=== PATIENT | male | born 1940 | race African-American/Black ===

== ENCOUNTER 2020-07-09 13:18 | Observation (INO) | payer MEDICARE, BC ==
[~2020-07-09] VITALS: Ht 167.6 cm; Wt 65.7 kg
[2020-07-09] MEDS ORDERED: ASPIRIN CHEWABLE 81 MG TABLET. PO ONE (13:30)
--- NOTE | 2020-07-09 13:34 | PHYS DOC ---
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 Patient reports chest pain started prior to arrival. Patient is overall a poor historian. Cannot tell me how long it lasted. He reports it was in the middle of his chest. Patient had some mild shortness of breath associated with it. No nausea or vomiting. Patient does report he has coronary disease. Per notations patient is on Plavix. Patient received nitroglycerin and aspirin at home. Patient reports his symptoms have resolved. Patient is currently on antibiotics for urinary tract infection. Patient is taking Keflex. Patient's arrived. She reports that she gave him 3 nitroglycerin at home and aspirin. His doctor is at [facility]. He does have a x ray physician there. He has had stents placed. Review of Systems: Review of Systems: Review of Systems: Constitutional: Denies fever or chills Eyes: Denies redness or eye pain HENT: Denies nasal congestion or sore throat Respiratory: Denies cough or shortness of breath Cardiovascular: Denies palpitations GI: denies abdominal pain and nausea, denies vomiting or diarrhea : Denies dysuria or hematuria Musculoskeletal: Denies back pain or joint pain Integument: Denies rash or skin lesions Neurologic: Denies headache, focal weakness or sensory changes Heart Score: HEART Score for Chest Pain: HEART Score for Chest Pain Response (Comments) Value History Moderately Suspicious 1 ECG Nonspecific Repolarizatio 1 Age > 65 2 Risk Factors >3 Risk Factors or Hx CAD 2 Troponin < Normal Limit 0 Total 6 Risk Factors: Risk Factors: DM, Current or recent (<one month) smoker, HTN, HLP, family history of CAD, obesity. Risk Scores: Score 0 - 3: 2.5% MACE over next 6 weeks - Discharge Home Score 4 - 6: 20.3% MACE over next 6 weeks - Admit for Clinical Observation Score 7 - 10: 72.7% MACE over next 6 weeks - Early Invasive Strategies Current Medications: Current Medications Medications (Trade) Dose Ordered Sig/Rafaela Start Time Stop Time Status Last Admin Dose Admin Aspirin (Aspirin Chewable) 324 mg 1X ONCE 07/09/20 13:30 07/09/20 13:31 UNV Physical Exam: PE: GENERAL APPEARANCE: Awake and alert. Cooperative. No acute distress. Non toxic appearing. HEAD: Normocephalic. Atraumatic. EYES: EOM's grossly intact. Sclera anicteric. Conjunctiva clear ENT:. Airway patent. Mucous membranes moist. No trismus. Tolerating secretions. NECK: Supple. Trachea midline. HEART: Regular rate and rhythm. Radial pulses 2+. Good capillary refill. LUNGS: Respirations unlabored. Clear to auscultation bilaterally. No rales, rhonchi, wheezing or retractions. ABDOMEN: Soft. Non-tender. No guarding or rebound. No CVA tenderness. No palpable or pulsatile mass. EXTREMITIES: No acute deformities. No edema, erythema or calf tenderness. SKIN: Warm and dry. No rash. NEUROLOGICAL: Alert and oriented x3. No gross neurological deficits. Moves all 4 extremities spontaneously. Resting tremor. PSYCHIATRIC: Normal mood. Patient EKG: EKG: [] EKG interpretation shows sinus rhythm with right bundle branch block. Ventricular rate of 68 bpm. [place] interval 160 ms. Castration 128 ms. QTc [address] segment elevations. Radiology/Procedures: Radiology/Procedures: []PROCEDURE: CHEST AP ONLY INDICATION: Reason: chest pain / Spl. Instructions: / History: COMPARISON: None. FINDINGS: Single view of chest obtained. Enlarged cardiomediastinal silhouette. Prominence of the aortic contour. Density projecting over the mediastinum. Hypoexpanded examination without a well- defined focal infiltrate. IMPRESSION: * Hypoexpanded exam without definite focal airspace consolidation. * Enlarged cardiomediastinal silhouette with prominent aortic contour. There is also a density projecting over the mediastinum which has a nonspecific appearance with some possible causes including hiatal hernia or aortic aneurysm. Electronically signed by: Jamey Zavala MD (07/09/2020 3:35 PM) [id number] DICTATED and SIGNED BY: JAMEY ZAVALA MD DATE: 07/09/20 [id number] 0 Course & Med Decision Making: Course & Med Decision Making Medical decision making: This is a 79-year-old male with history of coronary disease presents with chest pain that started prior to arrival. Upon arrival to the emergency department patient chest pain has resolved. He did receive aspirin and nitroglycerin prior to arrival. EKG showed no acute ST segment elevations. Right bundle branch block noted. No previous EKG for comparison. Chest x-ray shows hyperexpanded exam no consolidation. Enlarged cardia moderate mediastinal silhouette. Nonspecific density over the mediastinum. Troponin negative. I spoke with . She is agreeable to admit him. She is aware of all labs and imaging. All questions answered and patient is stable at time of admission. Currently chest pain-free. Marce Disclaimer: Marce Disclaimer: This electronic medical record was generated, in whole or in part, using a voice recognition dictation system. Departure Departure Disposition: ADMITTED INPT THIS HOSP Admitting Physician: DANYA dumont) VENICE SANCHEZ DO Jul 09, 2020 13:34
--- NOTE | 2020-07-09 13:47 | EKG ---
[facility] [address] [place] [address] Test Date: 2020-07-09 Test Time: 13:18:38 Pat Name: NICOLE ROSA Department: Room: Gender: M Media Analyst: : 1940 Requested By: VENICE SANCHEZ Order Number: [id number] Reading MD: Measurements Intervals [place] Rate: 68 P: 31 MI: 168 QRS: -11 QRSD: 128 T: 16 QT: 398 QTc: 423 Interpretive Statements SINUS RHYTHM LEFTWARD AXIS RIGHT BUNDLE BRANCH BLOCK ABNORMAL ECG RI6.02 No previous ECG available for comparison
[2020-07-09 14:11] LABS: BASO % 0 % (0-3); EOS # 0.1 x10^3/uL (0.0-0.7); EOS % 1 % (0-3); HEMATOCRIT 31.2 % (39.0-53.0); HEMOGLOBIN 10.3 g/dL (13.0-17.5); LYMPH % 12 % (24-48); MEAN CORPUSCULAR HEMOGLOBIN 33 pg (25-35); MEAN CORPUSCULAR HGB CONC 33 g/dL (31-37); MEAN CORPUSCULAR VOLUME 99 fL (79-100); MONO # 0.3 x10^3/uL (0.0-1.1); MONO % 4 % (0-9); NEUT # 6.6 x10^3/uL (1.8-7.7); NEUT % 82 % (31-73); PLATELET COUNT 240 x10^3/uL (140-400); RED BLOOD COUNT 3.15 x10^6/uL (4.30-5.70); RED CELL DISTRIBUTION WIDTH 14.8 % (11.5-14.5)
[2020-07-09 14:13] LABS: CALCIUM 10.8 mg/dL (8.5-10.1); CREATININE 1.8 mg/dL (0.7-1.3); GFR 44.4; POTASSIUM 4.3 mmol/L (3.5-5.1)
[2020-07-09 14:19] LABS: ALBUMIN 2.5 g/dL (3.4-5.0); ALBUMIN/GLOBULIN RATIO 0.6 (1.0-1.7); TOTAL BILIRUBIN 0.2 mg/dL (0.2-1.0); TOTAL PROTEIN 6.8 g/dL (6.4-8.2)
--- NOTE | 2020-07-09 15:21 | PDOC1 ---
History and Physical Date of Admission Date of Admission DATE: 07/09/20 TIME: 15:19 Identification/Chief Complaint Chief Complaint 79 yr old male with dementia, seen in er with chest discomfort Patient reports chest pain started prior to arrival. poor historian. reports it was in the middle of his chest. Patient had some mild shortness of breath associated lives in [facility], visiting daughter here in , His had hip surgery yesterday No nausea or vomiting. Patient does report he has coronary disease. is on Plavix. Patient received nitroglycerin and aspirin by EMS. Patient reports his symptoms have resolved. Patient is currently on antibiotics for urinary tract infection. Patient is taking Keflex. 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, chronic kidney disease, diabetes FHX HTN Family History Family History: Hypertension Social History Smoke: No ALCOHOL: none Drugs: None Current Medications Current Medications Current Medications Aspirin (Aspirin Chewable) 324 mg 1X ONCE PO ; Start 07/09/20 at 13:30; Stop 07/09/20 at 14:14; Status DC Allergies Allergies: Coded Allergies: promethazine (Verified Allergy, Severe, serotonin syndrom, 07/09/20) sulfamethoxazole (Verified Allergy, Intermediate, n/v, 07/09/20) trimethoprim (Verified Allergy, Intermediate, n/v, 07/09/20) adhesive tape (Verified Allergy, Mild, rash, 07/09/20) tramadol (Verified Allergy, Mild, tremors, 07/09/20) ROS Review of System Review of Systems: Constitutional: Denies fever or chills. [] Eyes: Denies change in visual acuity. [] HENT: Denies nasal congestion or sore throat. [] Respiratory: Denies cough or shortness of breath. [] Cardiovascular: Denies edema GI: Denies abdominal pain, nausea, vomiting, bloody stools or diarrhea. [] : Denies dysuria. [] Musculoskeletal: Denies back pain or joint pain. [] Integument: Denies rash. [] Neurologic: Denies headache, focal weakness or sensory changes. [] Endocrine: Denies polyuria or polydipsia. [] Lymphatic: Denies swollen glands. [] Psychiatric: Denies depression or anxiety. [] hx limited by dementia POOR HISTORIAN, ASSIST WITH HX , Reported chest pain to her General: YES: Fatigue Physical Exam Physical Exam No acute distress. Non toxic appearing. resistant to opening his eyes HEAD: Normocephalic. Atraumatic. EYES: EOM's grossly intact. Sclera anicteric. Conjunctiva clear ENT:. Airway patent. Mucous membranes moist. No trismus. Tolerating secretions. NECK: Supple. Trachea midline. HEART: Regular rate and rhythm. Radial pulses 2+. Good capillary refill. LUNGS: Respirations unlabored. Clear to auscultation bilaterally. No rales, rhonchi, wheezing or retractions. ABDOMEN: Soft. Non-tender. No guarding or rebound. No CVA tenderness. No palpable or pulsatile mass. EXTREMITIES: No acute deformities. No edema, erythema or calf tenderness. SKIN: Warm and dry. No rash. NEUROLOGICAL: not oriented No gross neurological deficits. Moves all 4 extremities spontaneously. Resting tremor. PSYCHIATRIC: Normal mood. General: Cooperative, No acute distress HEENT: Atraumatic Heart: RRR Breasts: Not examined Abdomen: Normal bowel sounds, Soft Rectal Exam: not examined Extremities: No cyanosis Vitals Vitals Vital Signs Date Time Temp Pulse Resp B/P (MAP) Pulse Ox O2 Delivery O2 Flow Rate FiO2 07/09/20 14:00 70 18 147/69 (95) 98 Room Air 07/09/20 13:18 98.5 98.5 Labs Labs Laboratory Tests Test 07/09/20 13:55 White Blood Count 8.0 x10^3/uL (4.0-11.0) Red Blood Count 3.15 x10^6/uL (4.30-5.70) Hemoglobin 10.3 g/dL (13.0-17.5) Hematocrit 31.2 % (39.0-53.0) Mean Corpuscular Volume 99 fL (79-100) Mean Corpuscular Hemoglobin 33 pg (25-35) Mean Corpuscular Hemoglobin Concent 33 g/dL (31-37) Red Cell Distribution Width 14.8 % (11.5-14.5) Platelet Count 240 x10^3/uL (140-400) Neutrophils (%) (Auto) 82 % (31-73) Lymphocytes (%) (Auto) 12 % (24-48) Monocytes (%) (Auto) 4 % (0-9) Eosinophils (%) (Auto) 1 % (0-3) Basophils (%) (Auto) 0 % (0-3) Neutrophils # (Auto) 6.6 x10^3/uL (1.8-7.7) Lymphocytes # (Auto) 1.0 x10^3/uL (1.0-4.8) Monocytes # (Auto) 0.3 x10^3/uL (0.0-1.1) Eosinophils # (Auto) 0.1 x10^3/uL (0.0-0.7) Basophils # (Auto) 0.0 x10^3/uL (0.0-0.2) Sodium Level 143 mmol/L (136-145) Potassium Level 4.3 mmol/L (3.5-5.1) Chloride Level 108 mmol/L (98-107) Carbon Dioxide Level 25 mmol/L (21-32) Anion Gap 10 (6-14) Blood Urea Nitrogen 34 mg/dL (8-26) Creatinine 1.8 mg/dL (0.7-1.3) Estimated GFR (Cockcroft-Gault) 44.4 BUN/Creatinine Ratio 19 (6-20) Glucose Level 235 mg/dL (70-99) Calcium Level 10.8 mg/dL (8.5-10.1) Total Bilirubin 0.2 mg/dL (0.2-1.0) Aspartate Amino Transf (AST/SGOT) 18 U/L (15-37) Alanine Aminotransferase (ALT/SGPT) 9 U/L (16-63) Alkaline Phosphatase 81 U/L (46-116) Troponin I Quantitative < 0.017 ng/mL (0.000-0.055) SN-Glk-D-Type Natriuretic Peptide 212 pg/mL (0-449) Total Protein 6.8 g/dL (6.4-8.2) Albumin 2.5 g/dL (3.4-5.0) Albumin/Globulin Ratio 0.6 (1.0-1.7) Laboratory Tests Test 07/09/20 13:55 White Blood Count 8.0 x10^3/uL (4.0-11.0) Red Blood Count 3.15 x10^6/uL (4.30-5.70) Hemoglobin 10.3 g/dL (13.0-17.5) Hematocrit 31.2 % (39.0-53.0) Mean Corpuscular Volume 99 fL (79-100) Mean Corpuscular Hemoglobin 33 pg (25-35) Mean Corpuscular Hemoglobin Concent 33 g/dL (31-37) Red Cell Distribution Width 14.8 % (11.5-14.5) Platelet Count 240 x10^3/uL (140-400) Neutrophils (%) (Auto) 82 % (31-73) Lymphocytes (%) (Auto) 12 % (24-48) Monocytes (%) (Auto) 4 % (0-9) Eosinophils (%) (Auto) 1 % (0-3) Basophils (%) (Auto) 0 % (0-3) Neutrophils # (Auto) 6.6 x10^3/uL (1.8-7.7) Lymphocytes # (Auto) 1.0 x10^3/uL (1.0-4.8) Monocytes # (Auto) 0.3 x10^3/uL (0.0-1.1) Eosinophils # (Auto) 0.1 x10^3/uL (0.0-0.7) Basophils # (Auto) 0.0 x10^3/uL (0.0-0.2) Sodium Level 143 mmol/L (136-145) Potassium Level 4.3 mmol/L (3.5-5.1) Chloride Level 108 mmol/L (98-107) Carbon Dioxide Level 25 mmol/L (21-32) Anion Gap 10 (6-14) Blood Urea Nitrogen 34 mg/dL (8-26) Creatinine 1.8 mg/dL (0.7-1.3) Estimated GFR (Cockcroft-Gault) 44.4 BUN/Creatinine Ratio 19 (6-20) Glucose Level 235 mg/dL (70-99) Calcium Level 10.8 mg/dL (8.5-10.1) Total Bilirubin 0.2 mg/dL (0.2-1.0) Aspartate Amino Transf (AST/SGOT) 18 U/L (15-37) Alanine Aminotransferase (ALT/SGPT) 9 U/L (16-63) Alkaline Phosphatase 81 U/L (46-116) Troponin I Quantitative < 0.017 ng/mL (0.000-0.055) XT-Hrn-I-Type Natriuretic Peptide 212 pg/mL (0-449) Total Protein 6.8 g/dL (6.4-8.2) Albumin 2.5 g/dL (3.4-5.0) Albumin/Globulin Ratio 0.6 (1.0-1.7) VTE Prophylaxis Ordered VTE Prophylaxis Devices: No VTE Pharmacological Prophylaxi: Yes Assessment/Plan Assessment/Plan impression chest pain dictated Justifications for Admission Other Justification REGGIE BRUNNER MD Jul 09, 2020 15:21
[2020-07-09] MEDS ORDERED: DOCUSATE SODIUM 100 MG CAPSULE. PO PRN (15:30)
[2020-07-09] MEDS ORDERED: ALBUTEROL SULFATE 2.5 MG/3 ML NEBU. NEB PRN (15:30)
[2020-07-09] MEDS ORDERED: ACETAMINOPHEN 325 MG TABLET. PO PRN (15:30)
[2020-07-09] MEDS ORDERED: 0.9 % SODIUM CHLORIDE 10 ML DISP.SYRIN. IV PRN (15:30)
[2020-07-09] MEDS ORDERED: ACETAMINOPHEN 650 MG SUPP.RECT. PR PRN (15:30)
[2020-07-09] MEDS ORDERED: ONDANSETRON PF 4 MG/2 ML VIAL. IV PRN (15:30)
[2020-07-09] MEDS ORDERED: SODIUM PHOSPHATES 19/7GM 133 ML ENEMA. PR PRN (15:30)
[2020-07-09] MEDS ORDERED: MAG HYDROX/ALUMINUM HYD/SIMETH 30 ML ORAL.SUSP PO PRN (15:30)
[2020-07-09] MEDS ORDERED: guaiFENesin ORAL 200 MG/10 ML LIQUID. PO PRN (15:30)
--- NOTE | 2020-07-09 15:37 | RAD ---
INDICATION: Reason: chest pain / Spl. Instructions: / History: COMPARISON: None. FINDINGS: Single view of chest obtained. Enlarged cardiomediastinal silhouette. Prominence of the aortic contour. Density projecting over the mediastinum. Hypoexpanded examination without a well-defined focal infiltrate. IMPRESSION: * Hypoexpanded exam without definite focal airspace consolidation. * Enlarged cardiomediastinal silhouette with prominent aortic contour. There is also a density proje cting over the mediastinum which has a nonspecific appearance with some possible causes including hia rusty hernia or aortic aneurysm. Electronically signed by: Robert Tabor MD (07/09/2020 3:35 PM) [id number]
[2020-07-09] MEDS: IV NORMAL SALINE 1000ML BAG 1,000 ML IV SCH (15:39)
[2020-07-09 17:16] LABS: BILIRUBIN,URINE NEGATIVE (NEG); CLARITY,URINE CLEAR; COLOR,URINE YELLOW; NITRITE,URINE POSITIVE (NEG); PH,URINE 5.5 (<5.0-8.0); PROTEIN,URINE 100 mg/dL (NEG-TRACE); UROBILINOGEN,URINE 0.2 mg/dL (0.2 mg/dL)
--- NOTE | 2020-07-09 17:28 | HP ---
ADMIT DATE: 07/09/2020 CHIEF COMPLAINT: Chest pain. HISTORY OF PRESENT ILLNESS: This is a 79-year-old male with a history of dementia, was seen in the Emergency Room after reporting chest pain to his prior to admission. Apparently, EMS was summoned and they were taken here given nitroglycerin en route as well as aspirin by EMS. The patient reports his symptoms have improved. His reports that she had hip surgery yesterday and they are visiting his daughter here in [place]. They normally live in [place] and received most of the care from [facility] or from the [facility] [place] location. The patient denies any vomiting or nausea. He is a poor historian because of dementia. PAST MEDICAL HISTORY: Significant for dementia, coronary artery disease with angioplasty, history of multiple myeloma, hypertension, recurrent UTIs, history of urine retention, chronic kidney disease and diabetes. FAMILY HISTORY: Positive for hypertension. SOCIAL HISTORY: No tobacco, alcohol or drug use. CURRENT MEDICATIONS: Please see medication reconciliation sheet. ALLERGIES: INCLUDE PROMETHAZINE, SULFA, ADHESIVE TAPE, AND TRAMADOL. REVIEW OF SYSTEMS: Again, limited by dementia, but no fever or chills. Denies nasal congestion. Denies cough or shortness of breath. His chest pain is almost resolved. Denies swollen glands. Denies depression or anxiety. Denies focal weakness, bloody stools, nausea, vomiting or edema. Denies fever. Chest pain is improved. It was located retrosternally without radiation. PHYSICAL EXAMINATION: VITAL SIGNS: Blood pressure 147/69, respiratory rate is 18, O2 sat 98% on room air. He is nontoxic, no acute distress. GENERAL: Resistant to opening his eyes, atraumatic. Extraocular muscles are intact. Sclerae are anicteric.: Mucous membranes are moist. He has some periodontal disease present. Tolerating secretions. Uvula is midline. NECK: Supple. CARDIOVASCULAR: Regular rate and rhythm without murmur, S3 or S4. LUNGS: Clear. Capillary refill is less than 2 seconds. No wheezing, rales or rhonchi. ABDOMEN: Soft, without guarding or tenderness. EXTREMITIES: Without edema or erythema. SKIN: Warm without significant lesions. He is not oriented. No gross neurologic deficits. He moves extremities fairly well with some tremor. Gait was not tested. Mood is normal and flat, generally cooperative. Breasts were not examined. RECTAL: Deferred. EXTREMITIES: Without cyanosis. LABORATORY DATA: White count is 8.0, hemoglobin 10.3, MCV 99, neutrophils 82%. Sodium 143, potassium 4.3, CO2 of 25, BUN 34, creatinine 1.8, calcium 10.1, AST is 18, ALT is 9. Chest x-ray today shows enlarged heart with prominent aortic contour nonspecific changes are present, likely due to hiatal hernia or aortic aneurysm. There is a density projecting over the mediastinum. Lungs are hyperexpanded without infiltrate. ASSESSMENT: This is a 79-year-old male with a history of known coronary artery disease, who presents with chest pain. He does have advanced dementia. His gives most of the history. She reports that the pain was fairly significant prior to arrival and resolved with nitroglycerin. We will plan to consult Cardiology and do serial troponins. 1. Hypertension. 2. 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 3. Chronic kidney disease stage 3. 4. Diabetes. 5. Severe protein caloric malnutrition. PLAN: See orders. Cardiology consult. Anticipate length of stay less than 48 hours. REGGIE BRUNNER MD DR: DENEEN/luz marina JOB#: [id number] / [id number]
[2020-07-09 17:33] LABS: HYALINE CASTS, URINE FEW /HPF
[2020-07-09 17:34] LABS: BACTERIA,URINE MANY /HPF (0-FEW); WBC,URINE 20-40 /HPF (0-4)
[2020-07-09 18:25] VITALS: BP 126/61
[2020-07-09] MEDS: ENOXAPARIN 40 MG/0.4 ML SYRINGE. SQ SCH (20:48)
[2020-07-09] MEDS ORDERED: ACYC800T PO (21:19)
[2020-07-09] MEDS ORDERED: ACET325T21 PO (21:19)
[2020-07-09] MEDS ORDERED: ATOR40TA59 PO (21:20)
[2020-07-09] MEDS ORDERED: AMLO5TAB4 PO (21:20)
[2020-07-09] MEDS ORDERED: ASPI-630 PO (21:20)
[2020-07-09] MEDS ORDERED: CARB1TAB22 PO (21:21)
[2020-07-09] MEDS ORDERED: CEPH500T PO (21:22)
[2020-07-09] MEDS ORDERED: CLOP75TA PO (21:23)
[2020-07-09] MEDS ORDERED: CYAN10002 IM (21:23)
[2020-07-09] MEDS ORDERED: DEXA4TAB63 PO (21:24)
[2020-07-09] MEDS ORDERED: DONE23TA PO (21:25)
[2020-07-09] MEDS ORDERED: FINA5TAB4 PO (21:26)
[2020-07-09] MEDS ORDERED: FLUT16SP NS (21:33)
[2020-07-09] MEDS ORDERED: GABA600T7 PO (21:34)
[2020-07-09] MEDS ORDERED: ISOS120T4 PO (21:34)
[2020-07-09] MEDS ORDERED: LIDO30CR TP (21:37)
[2020-07-09] MEDS ORDERED: LIDO1ADH63 TP (21:38)
[2020-07-09] MEDS ORDERED: MEMA10TA PO (21:40)
[2020-07-09] MEDS ORDERED: LORA0.5T96 PO (21:40)
[2020-07-09] MEDS ORDERED: METF500T16 PO (21:41)
[2020-07-09] MEDS ORDERED: METO25TA2 PO (21:41)
[2020-07-09] MEDS ORDERED: MULT-245 PO (21:42)
[2020-07-09] MEDS ORDERED: NYST15PO9 TP (21:43)
[2020-07-09] MEDS ORDERED: OLME20TA17 PO (21:43)
[2020-07-09] MEDS ORDERED: OXYB5TAB33 PO (21:44)
[2020-07-09] MEDS ORDERED: OXYC10TA PO (21:45)
[2020-07-09] MEDS ORDERED: OXYC5TAB88 PO (21:47)
[2020-07-09] MEDS ORDERED: PHEN-443 PO (21:49)
[2020-07-09] MEDS ORDERED: LEVO150T PO (21:49)
[2020-07-09] MEDS ORDERED: VITA25006 PO (21:50)
[2020-07-09 23:00] VITALS: BP 110/54
[2020-07-10 03:59] VITALS: BP 126/65
--- NOTE | 2020-07-10 04:06 | NUR ---
Pts pushed call button. Saying patient is having pain in chest. Call to Dr Raines. Orders received for tums. Will continue to monitor.
[2020-07-10] MEDS ORDERED: CALCIUM CARBONATE 500 MG TAB.CHEW PO PRN (04:15)
[2020-07-10] MEDS: IV NORMAL SALINE 1000ML BAG 1,000 ML IV SCH ×2 (04:15→16:23)
[2020-07-10 07:30] LABS: CALCIUM 10.1 mg/dL (8.5-10.1); CREATININE 1.7 mg/dL (0.7-1.3); GFR 47.4; POTASSIUM 4.1 mmol/L (3.5-5.1)
[2020-07-10 07:34] VITALS: BP 117/52
[2020-07-10] MEDS ORDERED: ACETAMINOPHEN 325 MG TABLET. PO PRN (09:45)
[2020-07-10] MEDS ORDERED: NON FORMULARY ITEM (Oxycodone Hcl (Oxycodone Hcl Immed.release) 1 TAB) PO PRN (09:45)
[2020-07-10] MEDS ORDERED: FLUTICASONE 50MCG/NASAL SPRAY 16GM BOTTLE. NS PRN (09:45)
[2020-07-10] MEDS ORDERED: LIDOCAINE/PRILOCAINE TOPICAL CREAM 5GM TUBE. TP PRN (09:45)
--- NOTE | 2020-07-10 10:29 | PDOC ---
PROGRESS NOTES Date of Service: DATE: 07/10/20 TIME: 10:29 Chief Complaint Chief Complaint ASSESSMENT: 79-year-old male with a history of known coronary artery disease, who presents w ith chest pain. He does have moderate dementia. His gives most of the history. reports that the pain was fairly s ignificant prior to arrival and resolved with nitroglycerin. We will plan to consult Cardiology and do serial troponins. 1. Hypertension. 2. 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 3. Chronic kidney disease stage 3. 4. Diabetes. 5. Severe protein caloric malnutrition. 6. moderate dementia PLAN: See orders. Cardiology consult. Anticipate length of stay less than 48 hours. urine culture 07/10 troponin i neg x 2 History of Present Illness History of Present Illness CHIEF COMPLAINT: Chest pain. HISTORY OF PRESENT ILLNESS: This is a 79-year-old male with a history of dementia, was seen in the Emergency Room after reporting chest pain to his prior to admission. Apparently, EMS was summoned and they were taken here given nitroglycerin en route as well as aspirin by EMS. The patient reports his symptoms have improved. His reports that she had hip surgery yesterday and they are visiting his daughter here in [place]. They normally live in [place] and received most of the care from [facility] or from the [facility] location. The patient denies any vomiting or nausea. He is a poor historian because of dementia. PAST MEDICAL HISTORY: Significant for dementia, coronary artery disease with angioplasty, history of multiple myeloma, hypertension, recurrent UTIs, history of urine retention, chronic kidney disease and diabetes. await records from [place] FAMILY HISTORY: Positive for hypertension. SOCIAL HISTORY: No tobacco, alcohol or drug use. CURRENT MEDICATIONS: Please see medication reconciliation sheet. ALLERGIES: INCLUDE PROMETHAZINE, SULFA, ADHESIVE TAPE, AND TRAMADOL. REVIEW OF SYSTEMS: Again, limited by dementia, but no fever or chills. Denies nasal congestion. Denies cough or shortness of breath. His chest pain is almost resolved. Denies swollen glands. Denies depression or anxiety. Denies focal weakness, bloody stools, nausea, vomiting or edema. Denies fever. Chest pain is improved. , was located retrosternally without radiation. Vitals Vitals Vital Signs Date Time Temp Pulse Resp B/P (MAP) Pulse Ox O2 Delivery O2 Flow Rate FiO2 07/10/20 08:00 Room Air 07/10/20 07:34 97.5 53 16 117/52 (73) 97 97.5 Physical Exam Physical Exam He is nontoxic, no acute distress. GENERAL: Resistant to opening his eyes, atraumatic. Extraocular muscles are intact. Sclerae are anicteric.: Mucous membranes are moist. He has some periodontal disease present. Tolerating secretions. Uvula is midline. NECK: Supple. CARDIOVASCULAR: Regular rate and rhythm without murmur, S3 or S4. LUNGS: Clear. Capillary refill is less than 2 seconds. No wheezing, rales or rhonchi. ABDOMEN: Soft, without guarding or tenderness. EXTREMITIES: Without edema or erythema. SKIN: Warm without significant lesions. He is not oriented. No gross neurologic deficits. He moves extremities fairly well with some tremor. Gait was not tested. Mood is normal and flat, generally cooperative. Breasts were not examined. RECTAL: Deferred. EXTREMITIES: Without cyanosis. General: Alert, Cooperative, No acute distress Heart: Regular rate Lungs: Clear Abdomen: Normal bowel sounds, Soft, No tenderness Extremities: No cyanosis, No edema Skin: No significant lesion Labs LABS Laboratory Tests Test 07/09/20 13:55 07/09/20 16:39 07/09/20 17:07 07/10/20 06:30 White Blood Count 8.0 x10^3/uL (4.0-11.0) Red Blood Count 3.15 x10^6/uL (4.30-5.70) Hemoglobin 10.3 g/dL (13.0-17.5) Hematocrit 31.2 % (39.0-53.0) Mean Corpuscular Volume 99 fL (79-100) Mean Corpuscular Hemoglobin 33 pg (25-35) Mean Corpuscular Hemoglobin Concent 33 g/dL (31-37) Red Cell Distribution Width 14.8 % (11.5-14.5) Platelet Count 240 x10^3/uL (140-400) Neutrophils (%) (Auto) 82 % (31-73) Lymphocytes (%) (Auto) 12 % (24-48) Monocytes (%) (Auto) 4 % (0-9) Eosinophils (%) (Auto) 1 % (0-3) Basophils (%) (Auto) 0 % (0-3) Neutrophils # (Auto) 6.6 x10^3/uL (1.8-7.7) Lymphocytes # (Auto) 1.0 x10^3/uL (1.0-4.8) Monocytes # (Auto) 0.3 x10^3/uL (0.0-1.1) Eosinophils # (Auto) 0.1 x10^3/uL (0.0-0.7) Basophils # (Auto) 0.0 x10^3/uL (0.0-0.2) Sodium Level 143 mmol/L (136-145) 147 mmol/L (136-145) Potassium Level 4.3 mmol/L (3.5-5.1) 4.1 mmol/L (3.5-5.1) Chloride Level 108 mmol/L (98-107) 114 mmol/L (98-107) Carbon Dioxide Level 25 mmol/L (21-32) 24 mmol/L (21-32) Anion Gap 10 (6-14) 9 (6-14) Blood Urea Nitrogen 34 mg/dL (8-26) 32 mg/dL (8-26) Creatinine 1.8 mg/dL (0.7-1.3) 1.7 mg/dL (0.7-1.3) Estimated GFR (Cockcroft-Gault) 44.4 47.4 BUN/Creatinine Ratio 19 (6-20) Glucose Level 235 mg/dL (70-99) 139 mg/dL (70-99) Calcium Level 10.8 mg/dL (8.5-10.1) 10.1 mg/dL (8.5-10.1) Total Bilirubin 0.2 mg/dL (0.2-1.0) Aspartate Amino Transf (AST/SGOT) 18 U/L (15-37) Alanine Aminotransferase (ALT/SGPT) 9 U/L (16-63) Alkaline Phosphatase 81 U/L (46-116) Troponin I Quantitative < 0.017 ng/mL (0.000-0.055) < 0.017 ng/mL (0.000-0.055) < 0.017 ng/mL (0.000-0.055) FS-Ltn-X-Type Natriuretic Peptide 212 pg/mL (0-449) Total Protein 6.8 g/dL (6.4-8.2) Albumin 2.5 g/dL (3.4-5.0) Albumin/Globulin Ratio 0.6 (1.0-1.7) Urine Collection Type U cath Urine Color Yellow Urine Clarity Clear Urine pH 5.5 (<5.0-8.0) Urine Specific [place] 1.025 (1.000-1.030) Urine Protein 100 mg/dL (NEG-TRACE) Urine Glucose (UA) Negative mg/dL (NEG) Urine Ketones (Stick) Negative mg/dL (NEG) Urine Blood Moderate (NEG) Urine Nitrite Positive (NEG) Urine Bilirubin Negative (NEG) Urine Urobilinogen Dipstick 0.2 mg/dL (0.2 mg/dL) Urine Leukocyte Esterase Moderate (NEG) Urine RBC 6-10 /HPF (0-2) Urine WBC 20-40 /HPF (0-4) Urine Squamous Epithelial Cells Few /LPF Urine Bacteria Many /HPF (0-FEW) Urine Hyaline Casts Few /HPF Urine Mucus Slight /LPF Test 07/10/20 07:12 Glucose (Fingerstick) 153 mg/dL (70-99) Comment Review of Relevant I have reviewed the following items dilan (where applicable) has been applied. Labs Laboratory Tests Test 07/09/20 13:55 07/09/20 16:39 07/09/20 17:07 07/10/20 06:30 White Blood Count 8.0 x10^3/uL (4.0-11.0) Red Blood Count 3.15 x10^6/uL (4.30-5.70) Hemoglobin 10.3 g/dL (13.0-17.5) Hematocrit 31.2 % (39.0-53.0) Mean Corpuscular Volume 99 fL (79-100) Mean Corpuscular Hemoglobin 33 pg (25-35) Mean Corpuscular Hemoglobin Concent 33 g/dL (31-37) Red Cell Distribution Width 14.8 % (11.5-14.5) Platelet Count 240 x10^3/uL (140-400) Neutrophils (%) (Auto) 82 % (31-73) Lymphocytes (%) (Auto) 12 % (24-48) Monocytes (%) (Auto) 4 % (0-9) Eosinophils (%) (Auto) 1 % (0-3) Basophils (%) (Auto) 0 % (0-3) Neutrophils # (Auto) 6.6 x10^3/uL (1.8-7.7) Lymphocytes # (Auto) 1.0 x10^3/uL (1.0-4.8) Monocytes # (Auto) 0.3 x10^3/uL (0.0-1.1) Eosinophils # (Auto) 0.1 x10^3/uL (0.0-0.7) Basophils # (Auto) 0.0 x10^3/uL (0.0-0.2) Sodium Level 143 mmol/L (136-145) 147 mmol/L (136-145) Potassium Level 4.3 mmol/L (3.5-5.1) 4.1 mmol/L (3.5-5.1) Chloride Level 108 mmol/L (98-107) 114 mmol/L (98-107) Carbon Dioxide Level 25 mmol/L (21-32) 24 mmol/L (21-32) Anion Gap 10 (6-14) 9 (6-14) Blood Urea Nitrogen 34 mg/dL (8-26) 32 mg/dL (8-26) Creatinine 1.8 mg/dL (0.7-1.3) 1.7 mg/dL (0.7-1.3) Estimated GFR (Cockcroft-Gault) 44.4 47.4 BUN/Creatinine Ratio 19 (6-20) Glucose Level 235 mg/dL (70-99) 139 mg/dL (70-99) Calcium Level 10.8 mg/dL (8.5-10.1) 10.1 mg/dL (8.5-10.1) Total Bilirubin 0.2 mg/dL (0.2-1.0) Aspartate Amino Transf (AST/SGOT) 18 U/L (15-37) Alanine Aminotransferase (ALT/SGPT) 9 U/L (16-63) Alkaline Phosphatase 81 U/L (46-116) Troponin I Quantitative < 0.017 ng/mL (0.000-0.055) < 0.017 ng/mL (0.000-0.055) < 0.017 ng/mL (0.000-0.055) IB-Hdp-C-Type Natriuretic Peptide 212 pg/mL (0-449) Total Protein 6.8 g/dL (6.4-8.2) Albumin 2.5 g/dL (3.4-5.0) Albumin/Globulin Ratio 0.6 (1.0-1.7) Urine Collection Type U cath Urine Color Yellow Urine Clarity Clear Urine pH 5.5 (<5.0-8.0) Urine Specific [place] 1.025 (1.000-1.030) Urine Protein 100 mg/dL (NEG-TRACE) Urine Glucose (UA) Negative mg/dL (NEG) Urine Ketones (Stick) Negative mg/dL (NEG) Urine Blood Moderate (NEG) Urine Nitrite Positive (NEG) Urine Bilirubin Negative (NEG) Urine Urobilinogen Dipstick 0.2 mg/dL (0.2 mg/dL) Urine Leukocyte Esterase Moderate (NEG) Urine RBC 6-10 /HPF (0-2) Urine WBC 20-40 /HPF (0-4) Urine Squamous Epithelial Cells Few /LPF Urine Bacteria Many /HPF (0-FEW) Urine Hyaline Casts Few /HPF Urine Mucus Slight /LPF Test 07/10/20 07:12 Glucose (Fingerstick) 153 mg/dL (70-99) Laboratory Tests Test 07/09/20 13:55 07/09/20 16:39 07/09/20 17:07 07/10/20 06:30 White Blood Count 8.0 x10^3/uL (4.0-11.0) Red Blood Count 3.15 x10^6/uL (4.30-5.70) Hemoglobin 10.3 g/dL (13.0-17.5) Hematocrit 31.2 % (39.0-53.0) Mean Corpuscular Volume 99 fL (79-100) Mean Corpuscular Hemoglobin 33 pg (25-35) Mean Corpuscular Hemoglobin Concent 33 g/dL (31-37) Red Cell Distribution Width 14.8 % (11.5-14.5) Platelet Count 240 x10^3/uL (140-400) Neutrophils (%) (Auto) 82 % (31-73) Lymphocytes (%) (Auto) 12 % (24-48) Monocytes (%) (Auto) 4 % (0-9) Eosinophils (%) (Auto) 1 % (0-3) Basophils (%) (Auto) 0 % (0-3) Neutrophils # (Auto) 6.6 x10^3/uL (1.8-7.7) Lymphocytes # (Auto) 1.0 x10^3/uL (1.0-4.8) Monocytes # (Auto) 0.3 x10^3/uL (0.0-1.1) Eosinophils # (Auto) 0.1 x10^3/uL (0.0-0.7) Basophils # (Auto) 0.0 x10^3/uL (0.0-0.2) Sodium Level 143 mmol/L (136-145) 147 mmol/L (136-145) Potassium Level 4.3 mmol/L (3.5-5.1) 4.1 mmol/L (3.5-5.1) Chloride Level 108 mmol/L (98-107) 114 mmol/L (98-107) Carbon Dioxide Level 25 mmol/L (21-32) 24 mmol/L (21-32) Anion Gap 10 (6-14) 9 (6-14) Blood Urea Nitrogen 34 mg/dL (8-26) 32 mg/dL (8-26) Creatinine 1.8 mg/dL (0.7-1.3) 1.7 mg/dL (0.7-1.3) Estimated GFR (Cockcroft-Gault) 44.4 47.4 BUN/Creatinine Ratio 19 (6-20) Glucose Level 235 mg/dL (70-99) 139 mg/dL (70-99) Calcium Level 10.8 mg/dL (8.5-10.1) 10.1 mg/dL (8.5-10.1) Total Bilirubin 0.2 mg/dL (0.2-1.0) Aspartate Amino Transf (AST/SGOT) 18 U/L (15-37) Alanine Aminotransferase (ALT/SGPT) 9 U/L (16-63) Alkaline Phosphatase 81 U/L (46-116) Troponin I Quantitative < 0.017 ng/mL (0.000-0.055) < 0.017 ng/mL (0.000-0.055) < 0.017 ng/mL (0.000-0.055) GT-Rfn-E-Type Natriuretic Peptide 212 pg/mL (0-449) Total Protein 6.8 g/dL (6.4-8.2) Albumin 2.5 g/dL (3.4-5.0) Albumin/Globulin Ratio 0.6 (1.0-1.7) Urine Collection Type U cath Urine Color Yellow Urine Clarity Clear Urine pH 5.5 (<5.0-8.0) Urine Specific [place] 1.025 (1.000-1.030) Urine Protein 100 mg/dL (NEG-TRACE) Urine Glucose (UA) Negative mg/dL (NEG) Urine Ketones (Stick) Negative mg/dL (NEG) Urine Blood Moderate (NEG) Urine Nitrite Positive (NEG) Urine Bilirubin Negative (NEG) Urine Urobilinogen Dipstick 0.2 mg/dL (0.2 mg/dL) Urine Leukocyte Esterase Moderate (NEG) Urine RBC 6-10 /HPF (0-2) Urine WBC 20-40 /HPF (0-4) Urine Squamous Epithelial Cells Few /LPF Urine Bacteria Many /HPF (0-FEW) Urine Hyaline Casts Few /HPF Urine Mucus Slight /LPF Test 07/10/20 07:12 Glucose (Fingerstick) 153 mg/dL (70-99) Medications Current Medications Aspirin (Aspirin Chewable) 324 mg 1X ONCE PO ; Start 07/09/20 at 13:30; Stop 07/09/20 at 14:14; Status DC Sodium Chloride (Normal Saline Flush) 3 ml QSHIFT PRN IV AFTER MEDS AND BLOOD DRAWS; Start 07/09/20 at 15:30 Sodium Chloride 1,000 ml @ 80 mls/hr [id number] IV Last administered on 07/10/20at 04:15; Start 07/09/20 at 15:30 Ondansetron HCl (Zofran) 4 mg PRN Q4HRS PRN IV NAUSEA/VOMITING; Start 07/09/20 at 15:30 Acetaminophen (Tylenol) 650 mg PRN Q4HRS PRN PO TEMP OVER 100.4F OR MILD PAIN Last administered on 07/10/20at 04:14; Start 07/09/20 at 15:30 Acetaminophen (Tylenol Supp) 650 mg PRN Q4HRS PRN LA TEMP OVER 100.4F OR MILD PAIN; Start 07/09/20 at 15:30 Al Hydroxide/Mg Hydroxide (Mylanta Plus Xs) 30 ml PRN DAILY PRN PO HEARTBURN / GAS; Start 07/09/20 at 15:30 Sodium Monofluorophosphate (Fleet Adult) 133 ml PRN DAILY PRN LA CONSTIPATION; Start 07/09/20 at 15:30 Docusate Sodium (Colace) 100 mg PRN BID PRN PO HARD STOOLS; Start 07/09/20 at 15:30 Albuterol Sulfate (Ventolin Neb Soln) 2.5 mg PRN Q4HRS PRN NEB SHORTNESS OF BREATH; Start 07/09/20 at 15:30 Guaifenesin (Robitussin) 200 mg PRN Q4HRS PRN PO COUGH; Start 07/09/20 at 15:30 Enoxaparin Sodium (Lovenox 40mg Syringe) 40 mg Q24H SQ Last administered on 07/09/20at 20:48; Start 07/09/20 at 21:00 Calcium Carbonate/ Glycine (Tums) 500 mg PRN AFTMEALHC PRN PO INDIGESTION Last administered on 07/10/20at 04:14; Start 07/10/20 at 04:15 Acetaminophen (Tylenol) 650 mg PRN DAILY PRN PO pain or fever; Start 07/10/20 at 09:45; Status UNV Amlodipine Besylate (Norvasc) 7.5 mg DAILY PO ; Start 07/10/20 at 10:00 Aspirin (Aspirin Chewable) 81 mg DAILY PO ; Start 07/10/20 at 10:00 Atorvastatin Calcium (Lipitor) 40 mg QHS PO ; Start 07/10/20 at 21:00 Carbidopa/Levodopa (Sinemet 25/100) 1.5 tab TID PO ; Start 07/10/20 at 14:00 Clopidogrel Bisulfate (Plavix) 75 mg DAILY PO ; Start 07/10/20 at 11:00 Cyanocobalamin (Vitamin B-12) 1,000 mcg QMONTH IM ; Start 08/09/20 at 09:00 Dexamethasone (Decadron) 4 mg QTH PO ; Start 07/15/20 at 16:00 Finasteride (Proscar) 5 mg DAILY PO ; Start 07/10/20 at 11:00 Fluticasone Propionate (Flonase) 2 spray PRN DAILY PRN NS ALLERGIES; Start 07/10/20 at 09:45 Levothyroxine Sodium (Synthroid) 525 mcg QSU PO ; Start 07/11/20 at 16:00; St atus UNV Lidocaine (Lidoderm) 1 patch DAILY TP ; Start 07/10/20 at 11:00 Lidocaine/ Prilocaine (Emla) 60 vicky TID PRN PRN TP PAIN; Start 07/10/20 at 09:45 Lorazepam (Ativan) 0.5 mg Q8HRS PO ; Start 07/10/20 at 14:00 Memantine (Namenda) 10 mg BID PO ; Start 07/10/20 at 11:00 Metformin HCl (Glucophage) 500 mg TIDAC PO ; Start 07/10/20 at 11:30 Metoprolol Succinate (Toprol Xl) 50 mg DAILY PO ; Start 07/10/20 at 11:00 Nystatin (Nystop) 1 vicky QID TP ; Start 07/10/20 at 13:00 Oxycodone HCl (Roxicodone) 5 mg Q6HRS PO ; Start 07/10/20 at 12:00 Non-Formulary Medication (Acyclovir ) 1 tab BID PO ; Start 07/10/20 at 21:00; Status UNV Cephalexin HCl (Keflex) 500 mg QMWF PO ; Start 07/12/20 at 16:00 Non-Formulary Medication (Donepezil Hcl ) 1 tab DAILY PO ; Start 07/11/20 at 09:00; Status UNV Gabapentin (Neurontin) 200 mg HS PO ; Start 07/10/20 at 21:00 Isosorbide Mononitrate (Imdur) 120 mg DAILY PO ; Start 07/10/20 at 11:00 Multivitamins (Thera M Plus) 1 tab DAILY PO ; Start 07/11/20 at 09:00 Non-Formulary Medication (Olmesartan Medoxomil (Benicar)) 1 tab QWE PO ; Start 07/14/20 at 16:00; Status UNV Non-Formulary Medication (Oxybutynin Chloride (Ditropan Xl)) 1 tab DAILY PO ; Start 07/11/20 at 09:00; Status UNV Non-Formulary Medication (Oxycodone Hcl (Oxycodone Hcl Immed.release)) 1 tab DAILY PRN PO pain; Start 07/10/20 at 09:45; Status UNV Non-Formulary Medication (Phenazopyridine Hcl ) 1 tab TID PO ; Start 07/10/20 at 14:00; Status UNV Folic Acid (Folic Acid) 1 mg NOON PO ; Start 07/10/20 at 12:00 Vitamin D (Vitamin D3) 2,000 unit NOON PO ; Start 07/10/20 at 12:00 Active Scripts Active Reported Noxifol-D3 2,500 Unit-1 mg Tab (Vitamin D3/Folic Acid) 2,500 Unit Tablet 1 Tab PO NOON 30 Days Synthroid (Levothyroxine Sodium) 150 Mcg Tablet 3.5 Tab PO QSU Phenazopyridine Hcl 100 Mg Tablet 1 Tab PO TID 2 Days Roxicodone (Oxycodone HCl) 5 Mg Tablet 5 Mg PO Q6HRS Oxycodone Hcl Immed.release (Oxycodone Hcl) 10 Mg Tablet 1 Tab PO DAILY PRN MDD 4 Tablet(s) 5 Days Ditropan Xl (Oxybutynin Chloride) 5 Mg Tab.er.24 1 Tab PO DAILY 30 Days Benicar (Olmesartan Medoxomil) 20 Mg Tablet 1 Tab PO QWE 30 Days Nystatin 15 Gm Powder 1 Vicky TP QID 7 Days apply to affected area(s) Multi Vitamin Daily (Multivitamin) 1 Each Tablet 1 Tab PO DAILY 30 Days Toprol Xl (Metoprolol Succinate) 25 Mg Tab.er.24h 2 Tab PO DAILY 30 Days Metformin Hcl 500 Mg Tablet 500 Mg PO TIDAC Namenda (Memantine Hcl) 10 Mg Tablet 1 Tab PO BID Ativan (Lorazepam) 0.5 Mg Tablet 0.5 Mg PO Q8HRS Lidocaine 1 Each Adh..patch 1 Each TP DAILY Lidocaine-Prilocaine Cream (Lidocaine/Prilocaine) 30 Gm Cream..g. 60 Gm TP TID PRN PRN Isosorbide Mononitrate Er (Isosorbide Mononitrate) 120 Mg Tab.er.24h 1 Tab PO DAILY 30 Days Gabapentin 600 Mg Tablet 200 Mg PO HS Fluticasone Propionate Nasal [place] (Fluticasone Propionate) 16 Gm [place].susp 2 [place] NS DAILY PRN Finasteride 5 Mg Tablet 1 Tab PO DAILY Donepezil Hcl 23 Mg Tablet 1 Tab PO DAILY 30 Days Decadron (Dexamethasone) 4 Mg Tablet 1 Tab PO QTH 3 Days Cyanocobalamin Injection (Cyanocobalamin (Vitamin B-12)) 1,000 Mcg/1 Ml Vial 1 Ml IM QMONTH Clopidogrel (Clopidogrel Bisulfate) 75 Mg Tablet 1 Tab PO DAILY Cephalexin 500 Mg Tablet 1 Tab PO QMWF Carbidopa-Levodopa 25-100 Tab (Carbidopa/Levodopa) 1 Each Tablet 1.5 Tab PO TID 30 Days Atorvastatin Calcium 40 Mg Tablet 1 Tab PO QHS Aspirin 81 Mg Tab.chew 1 Tab PO DAILY Norvasc (Amlodipine Besylate) 5 Mg Tablet 1.5 Tab PO DAILY Acyclovir 800 Mg Tablet 1 Tab PO BID Acetaminophen 325 Mg Tablet 2 Tab PO PRN DAILY PRN 30 Days Vitals/I & O Vital Sign - Last 24 Hours 07/09/20 07/09/20 07/09/20 07/09/20 13:18 14:00 14:30 15:00 Temp 98.5 98.5 Pulse 68 70 68 74 Resp 18 18 18 18 B/P (MAP) 138/65 (89) 147/69 (95) 141/74 (96) 142/67 (92) Pulse Ox 99 98 98 96 O2 Delivery Room Air Room Air Room Air Room Air 07/09/20 07/09/20 07/09/20 07/10/20 18:25 20:05 23:00 03:59 Temp 97.3 98.0 98.7 97.3 98.0 98.7 Pulse 69 58 59 Resp 18 16 16 B/P (MAP) 126/61 (82) 110/54 (72) 126/65 (85) Pulse Ox 95 94 96 O2 Delivery Room Air Room Air Room Air Room Air 07/10/20 07/10/20 07:34 08:00 Temp 97.5 97.5 Pulse 53 Resp 16 B/P (MAP) 117/52 (73) Pulse Ox 97 O2 Delivery Room Air Room Air Intake and Output 07/09/20 07/09/20 07/10/20 14:59 22:59 06:59 Intake Total 0 ml 0 ml Output Total 1000 ml 200 ml Balance -1000 ml -200 ml Justicifation of Admission Dx: Justifications for Admission: Justification of Admission Dx: Yes Angina: Symp at Rest REGGIE BRUNNER MD Jul 10, 2020 10:29
[2020-07-10 10:31] VITALS: BP 144/71
[2020-07-10] MEDS ORDERED: PHENAZOPYRIDINE 200 MG TABLET. PO PRN (10:45)
[2020-07-10] MEDS: LIDOCAINE (700MG/PATCH) PATCH. TP SCH (11:00)
[2020-07-10] MEDS: metFORMIN 500 MG TABLET PO SCH ×2 (11:11→16:21)
[2020-07-10] MEDS: OXYBUTYNIN CHLORIDE 5 MG TABLET PO SCH ×2 (11:11→20:31)
[2020-07-10] MEDS: ASPIRIN CHEWABLE 81 MG TABLET. PO SCH (11:11)
[2020-07-10] MEDS: CLOPIDOGREL BISULFATE 75 MG TABLET PO SCH (11:12)
[2020-07-10] MEDS: MEMANTINE 10 MG TABLET. PO SCH ×2 (11:12→20:32)
[2020-07-10] MEDS: oxyCODONE IR 5 MG TABLET PO SCH ×3 (11:13→23:12)
[2020-07-10] MEDS: METOPROLOL SUCC 24HR ER 25 MG TAB.ER.24H. PO SCH (11:13)
[2020-07-10] MEDS: FINASTERIDE 5 MG TABLET. PO SCH (11:13)
[2020-07-10] MEDS: amLODIPine BESYLATE 5 MG TABLET PO SCH (11:14)
[2020-07-10] MEDS: ISOSORBIDE MONONITRATE ER 30 MG TAB.ER.24H PO SCH (11:14)
[2020-07-10] MEDS: NYSTATIN TOPICAL POWDER 15GM BOTTLE. TP SCH ×3 (11:31→20:31)
[2020-07-10] MEDS ORDERED: CHOLECALCIFEROL (VITAMIN D3) 1,000 UNIT TABLET PO SCH (12:00)
[2020-07-10] MEDS ORDERED: FOLIC ACID 1 MG TABLET. PO SCH (12:00)
[2020-07-10] MEDS: LORazepam 0.5 MG TABLET PO SCH ×2 (14:31→20:31)
[2020-07-10] MEDS: CARBIDOPA/LEVODOPA 25/100MG TABLET PO SCH ×2 (14:32→20:32)
[2020-07-10 14:39] VITALS: BP 119/56
--- NOTE | 2020-07-10 17:22 | PDOC ---
PROGRESS NOTES Date of Service: DATE: 07/10/20 TIME: 17:22 Objective Objective Vital Signs Date Time Temp Pulse Resp B/P (MAP) Pulse Ox O2 Delivery O2 Flow Rate FiO2 07/10/20 16:21 97 Room Air 07/10/20 14:39 97.8 82 16 119/56 (77) 97.8 Intake and Output 07/10/20 07:00 Intake Total 0 ml Output Total 1200 ml Balance -1200 ml Intake Oral 0 ml Output Urine Total 1200 ml Physical Exam Abdomen: Normal bowel sounds, Soft, No tenderness Heart: Regular rate Extremities: No cyanosis, No edema General: Alert, Cooperative, No acute distress HEENT: Atraumatic Skin: No significant lesion Comment Review of Relevant I have reviewed the following items dilan (where applicable) has been applied. Labs Laboratory Tests Test 07/10/20 06:30 07/10/20 07:12 07/10/20 11:23 07/10/20 16:13 Sodium Level 147 mmol/L (136-145) Potassium Level 4.1 mmol/L (3.5-5.1) Chloride Level 114 mmol/L (98-107) Carbon Dioxide Level 24 mmol/L (21-32) Anion Gap 9 (6-14) Blood Urea Nitrogen 32 mg/dL (8-26) Creatinine 1.7 mg/dL (0.7-1.3) Estimated GFR (Cockcroft-Gault) 47.4 Glucose Level 139 mg/dL (70-99) Calcium Level 10.1 mg/dL (8.5-10.1) Troponin I Quantitative < 0.017 ng/mL (0.000-0.055) Glucose (Fingerstick) 153 mg/dL (70-99) 201 mg/dL (70-99) 197 mg/dL (70-99) Medications Current Medications Acetaminophen (Tylenol) 650 mg PRN DAILY PRN PO pain or fever; Start 07/10/20 at 09:45; Status UNV Acyclovir (Zovirax) 800 mg BID PO ; Start 07/10/20 at 21:00 Amlodipine Besylate (Norvasc) 7.5 mg DAILY PO Last administered on 07/10/20at 11:14; Start 07/10/20 at 10:00 Aspirin (Aspirin Chewable) 81 mg DAILY PO Last administered on 07/10/20at 11:11; Start 07/10/20 at 10:00 Atorvastatin Calcium (Lipitor) 40 mg QHS PO ; Start 07/10/20 at 21:00 Calcium Carbonate/ Glycine (Tums) 500 mg PRN AFTMEALHC PRN PO INDIGESTION Last administered on 07/10/20at 04:14; Start 07/10/20 at 04:15 Carbidopa/Levodopa (Sinemet 25/100) 1.5 tab TID PO Last administered on 07/10/20at 14:32; Start 07/10/20 at 14:00 Cephalexin HCl (Keflex) 500 mg QMWF PO ; Start 07/12/20 at 16:00 Clopidogrel Bisulfate (Plavix) 75 mg DAILY PO Last administered on 07/10/20at 11:12; Start 07/10/20 at 11:00 Cyanocobalamin (Vitamin B-12) 1,000 mcg QMONTH IM ; Start 08/09/20 at 09:00 Dexamethasone (Decadron) 4 mg QTH PO ; Start 07/15/20 at 16:00 Enoxaparin Sodium (Lovenox 40mg Syringe) 40 mg Q24H SQ Last administered on 07/09/20at 20:48; Start 07/09/20 at 21:00 Finasteride (Proscar) 5 mg DAILY PO Last administered on 07/10/20at 11:13; Start 07/10/20 at 11:00 Fluticasone Propionate (Flonase) 2 spray PRN DAILY PRN NS ALLERGIES; Start 07/10/20 at 09:45 Folic Acid (Folic Acid) 1 mg NOON PO Last administered on 07/10/20at 11:13; Start 07/10/20 at 12:00 Gabapentin (Neurontin) 200 mg HS PO ; Start 07/10/20 at 21:00 Isosorbide Mononitrate (Imdur) 120 mg DAILY PO Last administered on 07/10/20at 11:14; Start 07/10/20 at 11:00 Levothyroxine Sodium (Synthroid) 525 mcg QSU PO ; Start 07/11/20 at 16:00 Lidocaine (Lidoderm) 1 patch DAILY TP ; Start 07/10/20 at 11:00 Lidocaine/ Prilocaine (Emla) 60 kaveh TID PRN PRN TP PAIN; Start 07/10/20 at 09:45 Lorazepam (Ativan) 0.5 mg Q8HRS PO Last administered on 07/10/20at 14:31; Start 07/10/20 at 14:00 Losartan Potassium (Cozaar) 100 mg QWE PO ; Start 07/14/20 at 16:00 Memantine (Namenda) 10 mg BID PO Last administered on 07/10/20at 11:12; Start 07/10/20 at 11:00 Metformin HCl (Glucophage) 500 mg TIDAC PO Last administered on 07/10/20at 16:21; Start 07/10/20 at 11:30 Metoprolol Succinate (Toprol Xl) 50 mg DAILY PO Last administered on 07/10/20at 11:13; Start 07/10/20 at 11:00 Multivitamins (Thera M Plus) 1 tab DAILY PO ; Start 07/11/20 at 09:00 Non-Formulary Medication (Donepezil Hcl ) 1 tab DAILY PO ; Start 07/11/20 at 09:00; Status UNV Non-Formulary Medication (Oxycodone Hcl (Oxycodone Hcl Immed.release)) 1 tab DAILY PRN PO pain; Start 07/10/20 at 09:45; Status UNV Nystatin (Nystop) 1 kaveh QID TP Last administered on 07/10/20at 16:24; Start 07/10/20 at 13:00 Oxybutynin Chloride (Ditropan) 2.5 mg BID PO Last administered on 07/10/20at 11:11; Start 07/10/20 at 11:00 Oxycodone HCl (Roxicodone) 5 mg Q6HRS PO Last administered on 07/10/20at 16:21; Start 07/10/20 at 12:00 Phenazopyridine HCl (Pyridium) 100 mg PRN TID PRN PO URINARY PAIN; Start 07/10/20 at 10:45 Vitamin D (Vitamin D3) 2,000 unit NOON PO Last administered on 07/10/20at 11:13; Start 07/10/20 at 12:00 Vitals/I & O Vital Sign - Last 24 Hours 07/09/20 07/09/20 07/09/20 07/10/20 18:25 20:05 23:00 03:59 Temp 97.3 98.0 98.7 97.3 98.0 98.7 Pulse 69 58 59 Resp 18 16 16 B/P (MAP) 126/61 (82) 110/54 (72) 126/65 (85) Pulse Ox 95 94 96 O2 Delivery Room Air Room Air Room Air Room Air 07/10/20 07/10/20 07/10/20 07/10/20 07:34 08:00 10:31 11:13 Temp 97.5 97.7 97.5 97.7 Pulse 53 69 69 Resp 16 16 B/P (MAP) 117/52 (73) 144/71 (95) 144/71 Pulse Ox 97 93 O2 Delivery Room Air Room Air Room Air 07/10/20 07/10/20 07/10/20 07/10/20 11:13 11:14 11:14 12:13 Pulse 69 69 B/P (MAP) 144/71 144/71 Pulse Ox 93 93 O2 Delivery Room Air Room Air 07/10/20 07/10/20 14:39 16:21 Temp 97.8 97.8 Pulse 82 Resp 16 B/P (MAP) 119/56 (77) Pulse Ox 97 97 O2 Delivery Room Air Room Air Intake and Output 07/09/20 07/09/20 07/10/20 15:00 23:00 07:00 Intake Total 0 ml 0 ml Output Total 1000 ml 200 ml Balance -1000 ml -200 ml GAVIN MOURA MD Jul 10, 2020 17:22
--- NOTE | 2020-07-10 17:23 | PDOC2 ---
CONSULT Date of Consult Date of Consult DATE: 07/10/20 TIME: 17:23 Reason for Consult Reason for Consult: Chest pain Referring Physician Referring Physician: Dr. Raines Identification/Chief Complaint Chief Complaint Chest pain Source Source: Chart review, Patient History of Present Illness Reason for Visit: 79-year-old male with history of Parkinson's disease, dementia, coronary artery disease, usually followed by channel marketing manager in [place] was apparently visiting family in area when he started having chest pain. Patient is not a good historian secondary to his dementia but according to his , this was similar to the chest pain he had in the past. The pain was apparently relieved with 3 tablets of sublingual nitroglycerin and aspirin. However, he had recurrent chest pain earlier this morning that was relieved with Tums. He did not have any shortness of breath, palpitations or syncope. Past Medical History Past Medical History Coronary artery disease s/p PCI/stents placement several years ago at , followed by Dr. Chowdhury in [place] Hypertension Hyperlipidemia Hypothyroidism Parkinson's disease Dementia UTI Diabetes mellitus type 2 Family History Family History Not contributory Family History: Hypertension Social History No ALCOHOL: none Drugs: None Current Medications Current Medications Current Medications Aspirin (Aspirin Chewable) 324 mg 1X ONCE PO ; Start 07/09/20 at 13:30; Stop 07/09/20 at 14:14; Status DC Sodium Chloride (Normal Saline Flush) 3 ml QSHIFT PRN IV AFTER MEDS AND BLOOD DRAWS; Start 07/09/20 at 15:30 Sodium Chloride 1,000 ml @ 80 mls/hr [id number] IV Last administered on 07/10/20at 16:23; Start 07/09/20 at 15:30 Ondansetron HCl (Zofran) 4 mg PRN Q4HRS PRN IV NAUSEA/VOMITING; Start 07/09/20 at 15:30 Acetaminophen (Tylenol) 650 mg PRN Q4HRS PRN PO TEMP OVER 100.4F OR MILD PAIN Last administered on 07/10/20at 04:14; Start 07/09/20 at 15:30 Acetaminophen (Tylenol Supp) 650 mg PRN Q4HRS PRN CO TEMP OVER 100.4F OR MILD PAIN; Start 07/09/20 at 15:30 Al Hydroxide/Mg Hydroxide (Mylanta Plus Xs) 30 ml PRN DAILY PRN PO HEARTBURN / GAS; Start 07/09/20 at 15:30 Sodium Monofluorophosphate (Fleet Adult) 133 ml PRN DAILY PRN CO CONSTIPATION; Start 07/09/20 at 15:30 Docusate Sodium (Colace) 100 mg PRN BID PRN PO HARD STOOLS Last administered on 07/10/20at 14:31; Start 07/09/20 at 15:30 Albuterol Sulfate (Ventolin Neb Soln) 2.5 mg PRN Q4HRS PRN NEB SHORTNESS OF BREATH; Start 07/09/20 at 15:30 Guaifenesin (Robitussin) 200 mg PRN Q4HRS PRN PO COUGH; Start 07/09/20 at 15:30 Enoxaparin Sodium (Lovenox 40mg Syringe) 40 mg Q24H SQ Last administered on 07/09/20at 20:48; Start 07/09/20 at 21:00 Calcium Carbonate/ Glycine (Tums) 500 mg PRN AFTMEALHC PRN PO INDIGESTION Last administered on 07/10/20at 04:14; Start 07/10/20 at 04:15 Acetaminophen (Tylenol) 650 mg PRN DAILY PRN PO pain or fever; Start 07/10/20 at 09:45; Status UNV Amlodipine Besylate (Norvasc) 7.5 mg DAILY PO Last administered on 07/10/20at 11:14; Start 07/10/20 at 10:00 Aspirin (Aspirin Chewable) 81 mg DAILY PO Last administered on 07/10/20at 11:11; Start 07/10/20 at 10:00 Atorvastatin Calcium (Lipitor) 40 mg QHS PO ; Start 07/10/20 at 21:00 Carbidopa/Levodopa (Sinemet 25/100) 1.5 tab TID PO Last administered on 07/10/20at 14:32; Start 07/10/20 at 14:00 Clopidogrel Bisulfate (Plavix) 75 mg DAILY PO Last administered on 07/10/20at 11:12; Start 07/10/20 at 11:00 Cyanocobalamin (Vitamin B-12) 1,000 mcg QMONTH IM ; Start 08/09/20 at 09:00 Dexamethasone (Decadron) 4 mg QTH PO ; Start 07/15/20 at 16:00 Finasteride (Proscar) 5 mg DAILY PO Last administered on 07/10/20at 11:13; Start 07/10/20 at 11:00 Fluticasone Propionate (Flonase) 2 spray PRN DAILY PRN NS ALLERGIES; Start 07/10/20 at 09:45 Levothyroxine Sodium (Synthroid) 525 mcg QSU PO ; Start 07/11/20 at 16:00 Lidocaine (Lidoderm) 1 patch DAILY TP ; Start 07/10/20 at 11:00 Lidocaine/ Prilocaine (Emla) 60 vicky TID PRN PRN TP PAIN; Start 07/10/20 at 09:45 Lorazepam (Ativan) 0.5 mg Q8HRS PO Last administered on 07/10/20at 14:31; Start 07/10/20 at 14:00 Memantine (Namenda) 10 mg BID PO Last administered on 07/10/20at 11:12; Start 07/10/20 at 11:00 Metformin HCl (Glucophage) 500 mg TIDAC PO Last administered on 07/10/20at 16:21; Start 07/10/20 at 11:30 Metoprolol Succinate (Toprol Xl) 50 mg DAILY PO Last administered on 07/10/20at 11:13; Start 07/10/20 at 11:00 Nystatin (Nystop) 1 vicky QID TP Last administered on 07/10/20at 16:24; Start 07/10/20 at 13:00 Oxycodone HCl (Roxicodone) 5 mg Q6HRS PO Last administered on 07/10/20at 16:21; Start 07/10/20 at 12:00 Acyclovir (Zovirax) 800 mg BID PO ; Start 07/10/20 at 21:00 Cephalexin HCl (Keflex) 500 mg QMWF PO ; Start 07/12/20 at 16:00 Non-Formulary Medication (Donepezil Hcl ) 1 tab DAILY PO ; Start 07/11/20 at 09:00; Status UNV Gabapentin (Neurontin) 200 mg HS PO ; Start 07/10/20 at 21:00 Isosorbide Mononitrate (Imdur) 120 mg DAILY PO Last administered on 07/10/20at 11:14; Start 07/10/20 at 11:00 Multivitamins (Thera M Plus) 1 tab DAILY PO ; Start 07/11/20 at 09:00 Losartan Potassium (Cozaar) 100 mg QWE PO ; Start 07/14/20 at 16:00 Oxybutynin Chloride (Ditropan) 2.5 mg BID PO Last administered on 07/10/20at 11:11; Start 07/10/20 at 11:00 Non-Formulary Medication (Oxycodone Hcl (Oxycodone Hcl Immed.release)) 1 tab DAILY PRN PO pain; Start 07/10/20 at 09:45; Status UNV Phenazopyridine HCl (Pyridium) 100 mg PRN TID PRN PO URINARY PAIN; Start 07/10/20 at 10:45 Folic Acid (Folic Acid) 1 mg NOON PO Last administered on 07/10/20at 11:13; Start 07/10/20 at 12:00 Vitamin D (Vitamin D3) 2,000 unit NOON PO Last administered on 07/10/20at 11:13; Start 07/10/20 at 12:00 Active Scripts Active Reported Noxifol-D3 2,500 Unit-1 mg Tab (Vitamin D3/Folic Acid) 2,500 Unit Tablet 1 Tab PO NOON 30 Days Synthroid (Levothyroxine Sodium) 150 Mcg Tablet 3.5 Tab PO QSU Phenazopyridine Hcl 100 Mg Tablet 1 Tab PO TID 2 Days Roxicodone (Oxycodone HCl) 5 Mg Tablet 5 Mg PO Q6HRS Oxycodone Hcl Immed.release (Oxycodone Hcl) 10 Mg Tablet 1 Tab PO DAILY PRN MDD 4 Tablet(s) 5 Days Ditropan Xl (Oxybutynin Chloride) 5 Mg Tab.er.24 1 Tab PO DAILY 30 Days Benicar (Olmesartan Medoxomil) 20 Mg Tablet 1 Tab PO QWE 30 Days Nystatin 15 Gm Powder 1 Vicky TP QID 7 Days apply to affected area(s) Multi Vitamin Daily (Multivitamin) 1 Each Tablet 1 Tab PO DAILY 30 Days Toprol Xl (Metoprolol Succinate) 25 Mg Tab.er.24h 2 Tab PO DAILY 30 Days Metformin Hcl 500 Mg Tablet 500 Mg PO TIDAC Namenda (Memantine Hcl) 10 Mg Tablet 1 Tab PO BID Ativan (Lorazepam) 0.5 Mg Tablet 0.5 Mg PO Q8HRS Lidocaine 1 Each Adh..patch 1 Each TP DAILY Lidocaine-Prilocaine Cream (Lidocaine/Prilocaine) 30 Gm Cream..g. 60 Gm TP TID PRN PRN Isosorbide Mononitrate Er (Isosorbide Mononitrate) 120 Mg Tab.er.24h 1 Tab PO DAILY 30 Days Gabapentin 600 Mg Tablet 200 Mg PO HS Fluticasone Propionate Nasal [place] (Fluticasone Propionate) 16 Gm [place].susp 2 [place] NS DAILY PRN Finasteride 5 Mg Tablet 1 Tab PO DAILY Donepezil Hcl 23 Mg Tablet 1 Tab PO DAILY 30 Days Decadron (Dexamethasone) 4 Mg Tablet 1 Tab PO QTH 3 Days Cyanocobalamin Injection (Cyanocobalamin (Vitamin B-12)) 1,000 Mcg/1 Ml Vial 1 Ml IM QMONTH Clopidogrel (Clopidogrel Bisulfate) 75 Mg Tablet 1 Tab PO DAILY Cephalexin 500 Mg Tablet 1 Tab PO QMWF Carbidopa-Levodopa 25-100 Tab (Carbidopa/Levodopa) 1 Each Tablet 1.5 Tab PO TID 30 Days Atorvastatin Calcium 40 Mg Tablet 1 Tab PO QHS Aspirin 81 Mg Tab.chew 1 Tab PO DAILY Norvasc (Amlodipine Besylate) 5 Mg Tablet 1.5 Tab PO DAILY Acyclovir 800 Mg Tablet 1 Tab PO BID Acetaminophen 325 Mg Tablet 2 Tab PO PRN DAILY PRN 30 Days Allergies Allergies: Coded Allergies: promethazine (Verified Allergy, Severe, serotonin syndrom, 07/09/20) sulfamethoxazole (Verified Allergy, Intermediate, n/v, 07/09/20) trimethoprim (Verified Allergy, Intermediate, n/v, 07/09/20) adhesive tape (Verified Allergy, Mild, rash, 07/09/20) tramadol (Verified Allergy, Mild, tremors, 07/09/20) ROS Review of System Cannot be obtained secondary to dementia Physical Exam General: No acute distress HEENT: Atraumatic Lungs: Clear to auscultation Heart: Regular rate Abdomen: Soft Extremities: No edema Vitals VITALS Vital Signs Date Time Temp Pulse Resp B/P (MAP) Pulse Ox O2 Delivery O2 Flow Rate FiO2 07/10/20 16:21 97 Room Air 07/10/20 14:39 97.8 82 16 119/56 (77) 97.8 Labs Labs Laboratory Tests Test 07/09/20 13:55 07/09/20 16:39 07/09/20 17:07 07/10/20 06:30 White Blood Count 8.0 x10^3/uL (4.0-11.0) Red Blood Count 3.15 x10^6/uL (4.30-5.70) Hemoglobin 10.3 g/dL (13.0-17.5) Hematocrit 31.2 % (39.0-53.0) Mean Corpuscular Volume 99 fL (79-100) Mean Corpuscular Hemoglobin 33 pg (25-35) Mean Corpuscular Hemoglobin Concent 33 g/dL (31-37) Red Cell Distribution Width 14.8 % (11.5-14.5) Platelet Count 240 x10^3/uL (140-400) Neutrophils (%) (Auto) 82 % (31-73) Lymphocytes (%) (Auto) 12 % (24-48) Monocytes (%) (Auto) 4 % (0-9) Eosinophils (%) (Auto) 1 % (0-3) Basophils (%) (Auto) 0 % (0-3) Neutrophils # (Auto) 6.6 x10^3/uL (1.8-7.7) Lymphocytes # (Auto) 1.0 x10^3/uL (1.0-4.8) Monocytes # (Auto) 0.3 x10^3/uL (0.0-1.1) Eosinophils # (Auto) 0.1 x10^3/uL (0.0-0.7) Basophils # (Auto) 0.0 x10^3/uL (0.0-0.2) Sodium Level 143 mmol/L (136-145) 147 mmol/L (136-145) Potassium Level 4.3 mmol/L (3.5-5.1) 4.1 mmol/L (3.5-5.1) Chloride Level 108 mmol/L (98-107) 114 mmol/L (98-107) Carbon Dioxide Level 25 mmol/L (21-32) 24 mmol/L (21-32) Anion Gap 10 (6-14) 9 (6-14) Blood Urea Nitrogen 34 mg/dL (8-26) 32 mg/dL (8-26) Creatinine 1.8 mg/dL (0.7-1.3) 1.7 mg/dL (0.7-1.3) Estimated GFR (Cockcroft-Gault) 44.4 47.4 BUN/Creatinine Ratio 19 (6-20) Glucose Level 235 mg/dL (70-99) 139 mg/dL (70-99) Calcium Level 10.8 mg/dL (8.5-10.1) 10.1 mg/dL (8.5-10.1) Total Bilirubin 0.2 mg/dL (0.2-1.0) Aspartate Amino Transf (AST/SGOT) 18 U/L (15-37) Alanine Aminotransferase (ALT/SGPT) 9 U/L (16-63) Alkaline Phosphatase 81 U/L (46-116) Troponin I Quantitative < 0.017 ng/mL (0.000-0.055) < 0.017 ng/mL (0.000-0.055) < 0.017 ng/mL (0.000-0.055) PN-Wll-[id number]-Type Natriuretic Peptide 212 pg/mL (0-449) Total Protein 6.8 g/dL (6.4-8.2) Albumin 2.5 g/dL (3.4-5.0) Albumin/Globulin Ratio 0.6 (1.0-1.7) Urine Collection Type U cath Urine Color Yellow Urine Clarity Clear Urine pH 5.5 (<5.0-8.0) Urine Specific [place] 1.025 (1.000-1.030) Urine Protein 100 mg/dL (NEG-TRACE) Urine Glucose (UA) Negative mg/dL (NEG) Urine Ketones (Stick) Negative mg/dL (NEG) Urine Blood Moderate (NEG) Urine Nitrite Positive (NEG) Urine Bilirubin Negative (NEG) Urine Urobilinogen Dipstick 0.2 mg/dL (0.2 mg/dL) Urine Leukocyte Esterase Moderate (NEG) Urine RBC 6-10 /HPF (0-2) Urine WBC 20-40 /HPF (0-4) Urine Squamous Epithelial Cells Few /LPF Urine Bacteria Many /HPF (0-FEW) Urine Hyaline Casts Few /HPF Urine Mucus Slight /LPF Test 07/10/20 07:12 07/10/20 11:23 07/10/20 16:13 Glucose (Fingerstick) 153 mg/dL (70-99) 201 mg/dL (70-99) 197 mg/dL (70-99) Laboratory Tests Test 07/10/20 06:30 07/10/20 07:12 07/10/20 11:23 07/10/20 16:13 Sodium Level 147 mmol/L (136-145) Potassium Level 4.1 mmol/L (3.5-5.1) Chloride Level 114 mmol/L (98-107) Carbon Dioxide Level 24 mmol/L (21-32) Anion Gap 9 (6-14) Blood Urea Nitrogen 32 mg/dL (8-26) Creatinine 1.7 mg/dL (0.7-1.3) Estimated GFR (Cockcroft-Gault) 47.4 Glucose Level 139 mg/dL (70-99) Calcium Level 10.1 mg/dL (8.5-10.1) Troponin I Quantitative < 0.017 ng/mL (0.000-0.055) Glucose (Fingerstick) 153 mg/dL (70-99) 201 mg/dL (70-99) 197 mg/dL (70-99) Assessment/Plan Assessment/Plan 1. Chest pain with mixed features in a patient with known history of coronary artery disease s/p PCI/stent placement several years ago at . Myocardial infarction has been ruled out. According to his , he has had cardiac catheterization approximately 1 year ago and was recommended medical management. We will obtain prior medical records from primary channel marketing manager. We will pursue conservative management secondary to his age, dementia and comorbidities. 2. Hypertension: Controlled 3. Hyperlipidemia: Continue statin therapy 4. Diabetes mellitus type 2: Treat per IM 5. Recurrent UTI: On antibiotics 6. PCM, Parkinson's disease, dementia: Per IM Thank you for your consult GAVIN MOURA MD Jul 10, 2020 17:23
[2020-07-10 19:44] VITALS: BP 142/55
[2020-07-10] MEDS: ENOXAPARIN 40 MG/0.4 ML SYRINGE. SQ SCH (20:31)
[2020-07-10] MEDS: ACYCLOVIR 200 MG CAPSULE. PO SCH (20:31)
[2020-07-10] MEDS ORDERED: GABAPENTIN 100 MG CAPSULE. PO SCH (21:00)
[2020-07-10] MEDS ORDERED: ATORVASTATIN CALCIUM 40 MG TABLET. PO SCH (21:00)
[2020-07-10 22:40] VITALS: BP 122/56
[2020-07-11] MEDS: oxyCODONE IR 5 MG TABLET PO SCH ×3 (01:05→09:26)
[2020-07-11 03:59] VITALS: BP 139/55
[2020-07-11] MEDS: IV NORMAL SALINE 1000ML BAG 1,000 ML IV SCH (04:39)
[2020-07-11] MEDS: LORazepam 0.5 MG TABLET PO SCH (04:44)
[2020-07-11 07:00] VITALS: BP 128/66
[2020-07-11] MEDS ORDERED: DONEPEZIL HCL PO SCH (09:00)
[2020-07-11] MEDS: LIDOCAINE (700MG/PATCH) PATCH. TP SCH ×2 (09:00→09:28)
[2020-07-11] MEDS: NYSTATIN TOPICAL POWDER 15GM BOTTLE. TP SCH (09:00)
[2020-07-11] MEDS ORDERED: MULTIVITAMIN with MINERAL TABLET. PO SCH (09:00)
[2020-07-11] MEDS: OXYBUTYNIN CHLORIDE 5 MG TABLET PO SCH (09:00)
[2020-07-11] MEDS: ISOSORBIDE MONONITRATE ER 30 MG TAB.ER.24H PO SCH (09:22)
[2020-07-11] MEDS: ASPIRIN CHEWABLE 81 MG TABLET. PO SCH (09:23)
[2020-07-11] MEDS: amLODIPine BESYLATE 5 MG TABLET PO SCH (09:23)
[2020-07-11] MEDS: METOPROLOL SUCC 24HR ER 25 MG TAB.ER.24H. PO SCH (09:23)
[2020-07-11] MEDS: CLOPIDOGREL BISULFATE 75 MG TABLET PO SCH (09:23)
[2020-07-11] MEDS: metFORMIN 500 MG TABLET PO SCH (09:23)
[2020-07-11] MEDS: MEMANTINE 10 MG TABLET. PO SCH (09:23)
[2020-07-11] MEDS: ACYCLOVIR 200 MG CAPSULE. PO SCH (09:24)
[2020-07-11] MEDS: CARBIDOPA/LEVODOPA 25/100MG TABLET PO SCH (09:24)
[2020-07-11] MEDS: FINASTERIDE 5 MG TABLET. PO SCH (09:24)
--- NOTE | 2020-07-11 10:20 | PDOC ---
PROGRESS NOTES Date of Service: DATE: 07/11/20 TIME: 10:20 Chief Complaint Chief Complaint ASSESSMENT: 79-year-old male with a history of known coronary artery disease, who presents w ith chest pain. He does have moderate dementia. His gives most of the history. reports that the pain was fairly s ignificant prior to arrival and resolved with nitroglycerin. We will plan to consult Cardiology and do serial troponins. 1. Hypertension. 2. 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 3. Chronic kidney disease stage 3. 4. Diabetes. 5. Severe protein caloric malnutrition. 6. moderate dementia PLAN: See orders. Cardiology consult. Anticipate length of stay less than 48 hours. urine culture he has had cardiac catheterization approximately 1 year ago and was recommended medical management. 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 pursue conservative management secondary to his age, dementia 07/11 troponin i neg x 2 d/c - d/c planning 27 min History of Present Illness History of Present Illness CHIEF COMPLAINT: Chest pain. HISTORY OF PRESENT ILLNESS: This is a 79-year-old male with a history of dementia, was seen in the Emergency Room after reporting chest pain to his prior to admission. Apparently, EMS was summoned and they were taken here given nitroglycerin en route as well as aspirin by EMS. The patient reports his symptoms have improved. His reports that she had hip surgery yesterday and they are visiting his daughter here in [place]. They normally live in [place] and received most of the care from [facility] or from the [facility] location. The patient denies any vomiting or nausea. He is a poor historian because of dementia. PAST MEDICAL HISTORY: Significant for dementia, coronary artery disease with angioplasty, history of multiple myeloma, hypertension, recurrent UTIs, history of urine retention, chronic kidney disease and diabetes. await records from [place] FAMILY HISTORY: Positive for hypertension. SOCIAL HISTORY: No tobacco, alcohol or drug use. CURRENT MEDICATIONS: Please see medication reconciliation sheet. ALLERGIES: INCLUDE PROMETHAZINE, SULFA, ADHESIVE TAPE, AND TRAMADOL. REVIEW OF SYSTEMS: Again, limited by dementia, but no fever or chills. Denies nasal congestion. Denies cough or shortness of breath. His chest pain is almost resolved. Denies swollen glands. Denies depression or anxiety. Denies focal weakness, bloody stools, nausea, vomiting or edema. Denies fever. Chest pain is improved. , was located retrosternally without radiation. Vitals Vitals Vital Signs Date Time Temp Pulse Resp B/P (MAP) Pulse Ox O2 Delivery O2 Flow Rate FiO2 07/11/20 09:26 18 95 Room Air 07/11/20 09:23 73 128/66 07/11/20 07:00 98.7 98.7 Physical Exam Physical Exam He is nontoxic, no acute distress. GENERAL: Resistant to opening his eyes, atraumatic. Extraocular muscles are intact. Sclerae are anicteric.: Mucous membranes are moist. He has some periodontal disease present. Tolerating secretions. Uvula is midline. NECK: Supple. CARDIOVASCULAR: Regular rate and rhythm without murmur, S3 or S4. LUNGS: Clear. Capillary refill is less than 2 seconds. No wheezing, rales or rhonchi. ABDOMEN: Soft, without guarding or tenderness. EXTREMITIES: Without edema or erythema. SKIN: Warm without significant lesions. He is not oriented. No gross neurologic deficits. He moves extremities fairly well with some tremor. Gait was not tested. Mood is normal and flat, generally cooperative. Breasts were not examined. RECTAL: Deferred. EXTREMITIES: Without cyanosis. General: Cooperative, No acute distress Heart: Regular rate, Normal S1, Normal S2 Lungs: Clear Abdomen: Normal bowel sounds, Soft, No tenderness Extremities: No cyanosis, No edema, No tenderness/swelling Skin: No significant lesion Labs LABS Laboratory Tests Test 07/10/20 11:23 07/10/20 16:13 07/10/20 20:41 07/11/20 07:01 Glucose (Fingerstick) 201 mg/dL (70-99) 197 mg/dL (70-99) 194 mg/dL (70-99) 150 mg/dL (70-99) Comment Review of Relevant I have reviewed the following items dilan (where applicable) has been applied. Labs Laboratory Tests Test 07/09/20 13:55 07/09/20 16:39 07/09/20 17:07 07/10/20 06:30 White Blood Count 8.0 x10^3/uL (4.0-11.0) Red Blood Count 3.15 x10^6/uL (4.30-5.70) Hemoglobin 10.3 g/dL (13.0-17.5) Hematocrit 31.2 % (39.0-53.0) Mean Corpuscular Volume 99 fL (79-100) Mean Corpuscular Hemoglobin 33 pg (25-35) Mean Corpuscular Hemoglobin Concent 33 g/dL (31-37) Red Cell Distribution Width 14.8 % (11.5-14.5) Platelet Count 240 x10^3/uL (140-400) Neutrophils (%) (Auto) 82 % (31-73) Lymphocytes (%) (Auto) 12 % (24-48) Monocytes (%) (Auto) 4 % (0-9) Eosinophils (%) (Auto) 1 % (0-3) Basophils (%) (Auto) 0 % (0-3) Neutrophils # (Auto) 6.6 x10^3/uL (1.8-7.7) Lymphocytes # (Auto) 1.0 x10^3/uL (1.0-4.8) Monocytes # (Auto) 0.3 x10^3/uL (0.0-1.1) Eosinophils # (Auto) 0.1 x10^3/uL (0.0-0.7) Basophils # (Auto) 0.0 x10^3/uL (0.0-0.2) Sodium Level 143 mmol/L (136-145) 147 mmol/L (136-145) Potassium Level 4.3 mmol/L (3.5-5.1) 4.1 mmol/L (3.5-5.1) Chloride Level 108 mmol/L (98-107) 114 mmol/L (98-107) Carbon Dioxide Level 25 mmol/L (21-32) 24 mmol/L (21-32) Anion Gap 10 (6-14) 9 (6-14) Blood Urea Nitrogen 34 mg/dL (8-26) 32 mg/dL (8-26) Creatinine 1.8 mg/dL (0.7-1.3) 1.7 mg/dL (0.7-1.3) Estimated GFR (Cockcroft-Gault) 44.4 47.4 BUN/Creatinine Ratio 19 (6-20) Glucose Level 235 mg/dL (70-99) 139 mg/dL (70-99) Calcium Level 10.8 mg/dL (8.5-10.1) 10.1 mg/dL (8.5-10.1) Total Bilirubin 0.2 mg/dL (0.2-1.0) Aspartate Amino Transf (AST/SGOT) 18 U/L (15-37) Alanine Aminotransferase (ALT/SGPT) 9 U/L (16-63) Alkaline Phosphatase 81 U/L (46-116) Troponin I Quantitative < 0.017 ng/mL (0.000-0.055) < 0.017 ng/mL (0.000-0.055) < 0.017 ng/mL (0.000-0.055) WS-Ija-I-Type Natriuretic Peptide 212 pg/mL (0-449) Total Protein 6.8 g/dL (6.4-8.2) Albumin 2.5 g/dL (3.4-5.0) Albumin/Globulin Ratio 0.6 (1.0-1.7) Urine Collection Type U cath Urine Color Yellow Urine Clarity Clear Urine pH 5.5 (<5.0-8.0) Urine Specific [place] 1.025 (1.000-1.030) Urine Protein 100 mg/dL (NEG-TRACE) Urine Glucose (UA) Negative mg/dL (NEG) Urine Ketones (Stick) Negative mg/dL (NEG) Urine Blood Moderate (NEG) Urine Nitrite Positive (NEG) Urine Bilirubin Negative (NEG) Urine Urobilinogen Dipstick 0.2 mg/dL (0.2 mg/dL) Urine Leukocyte Esterase Moderate (NEG) Urine RBC 6-10 /HPF (0-2) Urine WBC 20-40 /HPF (0-4) Urine Squamous Epithelial Cells Few /LPF Urine Bacteria Many /HPF (0-FEW) Urine Hyaline Casts Few /HPF Urine Mucus Slight /LPF Test 07/10/20 07:12 07/10/20 11:23 07/10/20 16:13 07/10/20 20:41 Glucose (Fingerstick) 153 mg/dL (70-99) 201 mg/dL (70-99) 197 mg/dL (70-99) 194 mg/dL (70-99) Test 07/11/20 07:01 Glucose (Fingerstick) 150 mg/dL (70-99) Laboratory Tests Test 07/10/20 11:23 07/10/20 16:13 07/10/20 20:41 07/11/20 07:01 Glucose (Fingerstick) 201 mg/dL (70-99) 197 mg/dL (70-99) 194 mg/dL (70-99) 150 mg/dL (70-99) Medications Current Medications Aspirin (Aspirin Chewable) 324 mg 1X ONCE PO ; Start 07/09/20 at 13:30; Stop 07/09/20 at 14:14; Status DC Sodium Chloride (Normal Saline Flush) 3 ml QSHIFT PRN IV AFTER MEDS AND BLOOD DRAWS; Start 07/09/20 at 15:30 Sodium Chloride 1,000 ml @ 80 mls/hr [id number] IV Last administered on 07/11/20at 04:39; Start 07/09/20 at 15:30 Ondansetron HCl (Zofran) 4 mg PRN Q4HRS PRN IV NAUSEA/VOMITING; Start 07/09/20 at 15:30 Acetaminophen (Tylenol) 650 mg PRN Q4HRS PRN PO TEMP OVER 100.4F OR MILD PAIN Last administered on 07/10/20at 04:14; Start 07/09/20 at 15:30 Acetaminophen (Tylenol Supp) 650 mg PRN Q4HRS PRN AL TEMP OVER 100.4F OR MILD PAIN; Start 07/09/20 at 15:30 Al Hydroxide/Mg Hydroxide (Mylanta Plus Xs) 30 ml PRN DAILY PRN PO HEARTBURN / GAS; Start 07/09/20 at 15:30 Sodium Monofluorophosphate (Fleet Adult) 133 ml PRN DAILY PRN AL CONSTIPATION; Start 07/09/20 at 15:30 Docusate Sodium (Colace) 100 mg PRN BID PRN PO HARD STOOLS Last administered on 07/10/20at 14:31; Start 07/09/20 at 15:30 Albuterol Sulfate (Ventolin Neb Soln) 2.5 mg PRN Q4HRS PRN NEB SHORTNESS OF BREATH; Start 07/09/20 at 15:30 Guaifenesin (Robitussin) 200 mg PRN Q4HRS PRN PO COUGH; Start 07/09/20 at 15:30 Enoxaparin Sodium (Lovenox 40mg Syringe) 40 mg Q24H SQ Last administered on 07/10/20at 20:31; Start 07/09/20 at 21:00 Calcium Carbonate/ Glycine (Tums) 500 mg PRN AFTMEALHC PRN PO INDIGESTION Last administered on 07/10/20at 04:14; Start 07/10/20 at 04:15 Acetaminophen (Tylenol) 650 mg PRN DAILY PRN PO pain or fever; Start 07/10/20 at 09:45; Status UNV Amlodipine Besylate (Norvasc) 7.5 mg DAILY PO Last administered on 07/11/20 09:23; Start 07/10/20 at 10:00 Aspirin (Aspirin Chewable) 81 mg DAILY PO Last administered on 07/11/20 09:23; Start 07/10/20 at 10:00 Atorvastatin Calcium (Lipitor) 40 mg QHS PO Last administered on 07/10/20at 20:32; Start 07/10/20 at 21:00 Carbidopa/Levodopa (Sinemet 25/100) 1.5 tab TID PO Last administered on 07/11/20 09:24; Start 07/10/20 at 14:00 Clopidogrel Bisulfate (Plavix) 75 mg DAILY PO Last administered on 07/11/20 09:23; Start 07/10/20 at 11:00 Cyanocobalamin (Vitamin B-12) 1,000 mcg QMONTH IM ; Start 08/09/20 at 09:00 Dexamethasone (Decadron) 4 mg QTH PO ; Start 07/15/20 at 16:00 Finasteride (Proscar) 5 mg DAILY PO Last administered on 07/11/20at 09:24; Start 07/10/20 at 11:00 Fluticasone Propionate (Flonase) 2 spray PRN DAILY PRN NS ALLERGIES; Start 07/10/20 at 09:45 Levothyroxine Sodium (Synthroid) 525 mcg QSU PO ; Start 07/11/20 at 16:00 Lidocaine (Lidoderm) 1 patch DAILY TP Last administered on 07/11/20at 09:28; Start 07/10/20 at 11:00 Lidocaine/ Prilocaine (Emla) 60 vicky TID PRN PRN TP PAIN; Start 07/10/20 at 09:45 Lorazepam (Ativan) 0.5 mg Q8HRS PO Last administered on 07/11/20at 04:44; Start 07/10/20 at 14:00 Memantine (Namenda) 10 mg BID PO Last administered on 07/11/20 09:23; Start 07/10/20 at 11:00 Metformin HCl (Glucophage) 500 mg TIDAC PO Last administered on 07/11/20 09:23; Start 07/10/20 at 11:30 Metoprolol Succinate (Toprol Xl) 50 mg DAILY PO Last administered on 07/11/20 09:23; Start 07/10/20 at 11:00 Nystatin (Nystop) 1 vicky QID TP Last administered on 07/10/20 20:31; Start 07/10/20 at 13:00 Oxycodone HCl (Roxicodone) 5 mg Q6HRS PO Last administered on 07/11/20 09:26; Start 07/10/20 at 12:00 Acyclovir (Zovirax) 800 mg BID PO Last administered on 07/11/20at 09:24; Start 07/10/20 at 21:00 Cephalexin HCl (Keflex) 500 mg QMWF PO ; Start 07/12/20 at 16:00 Non-Formulary Medication (Donepezil Hcl ) 1 tab DAILY PO ; Start 07/11/20 at 09:00; Status UNV Gabapentin (Neurontin) 200 mg HS PO Last administered on 07/10/20at 20:31; Start 07/10/20 at 21:00 Isosorbide Mononitrate (Imdur) 120 mg DAILY PO Last administered on 07/11/20 09:22; Start 07/10/20 at 11:00 Multivitamins (Thera M Plus) 1 tab DAILY PO Last administered on 07/11/20at 09:23; Start 07/11/20 at 09:00 Losartan Potassium (Cozaar) 100 mg QWE PO ; Start 07/14/20 at 16:00 Oxybutynin Chloride (Ditropan) 2.5 mg BID PO Last administered on 07/10/20at 20:31; Start 07/10/20 at 11:00 Non-Formulary Medication (Oxycodone Hcl (Oxycodone Hcl Immed.release)) 1 tab DAILY PRN PO pain; Start 07/10/20 at 09:45; Status UNV Phenazopyridine HCl (Pyridium) 100 mg PRN TID PRN PO URINARY PAIN; Start 07/10/20 at 10:45 Folic Acid (Folic Acid) 1 mg NOON PO Last administered on 07/10/20at 11:13; Start 07/10/20 at 12:00 Vitamin D (Vitamin D3) 2,000 unit NOON PO Last administered on 07/10/20at 11:13; Start 07/10/20 at 12:00 Active Scripts Active Reported Noxifol-D3 2,500 Unit-1 mg Tab (Vitamin D3/Folic Acid) 2,500 Unit Tablet 1 Tab PO NOON 30 Days Synthroid (Levothyroxine Sodium) 150 Mcg Tablet 3.5 Tab PO QSU Phenazopyridine Hcl 100 Mg Tablet 1 Tab PO TID 2 Days Roxicodone (Oxycodone HCl) 5 Mg Tablet 5 Mg PO Q6HRS Oxycodone Hcl Immed.release (Oxycodone Hcl) 10 Mg Tablet 1 Tab PO DAILY PRN MDD 4 Tablet(s) 5 Days Ditropan Xl (Oxybutynin Chloride) 5 Mg Tab.er.24 1 Tab PO DAILY 30 Days Benicar (Olmesartan Medoxomil) 20 Mg Tablet 1 Tab PO QWE 30 Days Nystatin 15 Gm Powder 1 Vicky TP QID 7 Days apply to affected area(s) Multi Vitamin Daily (Multivitamin) 1 Each Tablet 1 Tab PO DAILY 30 Days Toprol Xl (Metoprolol Succinate) 25 Mg Tab.er.24h 2 Tab PO DAILY 30 Days Metformin Hcl 500 Mg Tablet 500 Mg PO TIDAC Namenda (Memantine Hcl) 10 Mg Tablet 1 Tab PO BID Ativan (Lorazepam) 0.5 Mg Tablet 0.5 Mg PO Q8HRS Lidocaine 1 Each Adh..patch 1 Each TP DAILY Lidocaine-Prilocaine Cream (Lidocaine/Prilocaine) 30 Gm Cream..g. 60 Gm TP TID PRN PRN Isosorbide Mononitrate Er (Isosorbide Mononitrate) 120 Mg Tab.er.24h 1 Tab PO DAILY 30 Days Gabapentin 600 Mg Tablet 200 Mg PO HS Fluticasone Propionate Nasal [place] (Fluticasone Propionate) 16 Gm [place].susp 2 [place] NS DAILY PRN Finasteride 5 Mg Tablet 1 Tab PO DAILY Donepezil Hcl 23 Mg Tablet 1 Tab PO DAILY 30 Days Decadron (Dexamethasone) 4 Mg Tablet 1 Tab PO QTH 3 Days Cyanocobalamin Injection (Cyanocobalamin (Vitamin B-12)) 1,000 Mcg/1 Ml Vial 1 Ml IM QMONTH Clopidogrel (Clopidogrel Bisulfate) 75 Mg Tablet 1 Tab PO DAILY Cephalexin 500 Mg Tablet 1 Tab PO QMWF Carbidopa-Levodopa 25-100 Tab (Carbidopa/Levodopa) 1 Each Tablet 1.5 Tab PO TID 30 Days Atorvastatin Calcium 40 Mg Tablet 1 Tab PO QHS Aspirin 81 Mg Tab.chew 1 Tab PO DAILY Norvasc (Amlodipine Besylate) 5 Mg Tablet 1.5 Tab PO DAILY Acyclovir 800 Mg Tablet 1 Tab PO BID Acetaminophen 325 Mg Tablet 2 Tab PO PRN DAILY PRN 30 Days Vitals/I & O Vital Sign - Last 24 Hours 07/10/20 07/10/20 07/10/20 07/10/20 10:31 11:13 11:13 11:14 Temp 97.7 97.7 Pulse 69 69 69 Resp 16 B/P (MAP) 144/71 (95) 144/71 144/71 Pulse Ox 93 93 O2 Delivery Room Air Room Air 07/10/20 07/10/20 07/10/20 07/10/20 11:14 12:13 14:39 16:21 Temp 97.8 97.8 Pulse 69 82 Resp 16 B/P (MAP) 144/71 119/56 (77) Pulse Ox 93 97 97 O2 Delivery Room Air Room Air Room Air 07/10/20 07/10/20 07/10/20 07/10/20 17:21 19:44 19:44 22:40 Temp 98.2 98.5 98.2 98.5 Pulse 73 69 Resp 14 16 B/P (MAP) 142/55 (84) 122/56 (78) Pulse Ox 97 96 96 O2 Delivery Room Air Room Air Room Air Room Air 07/11/20 07/11/20 07/11/20 07/11/20 01:05 02:05 03:59 07:00 Temp 98.8 98.7 98.8 98.7 Pulse 59 73 Resp 18 18 16 16 B/P (MAP) 139/55 (83) 128/66 (86) Pulse Ox 97 95 O2 Delivery Room Air Room Air Room Air Room Air 07/11/20 07/11/20 07/11/20 07/11/20 09:22 09:23 09:23 09:26 Pulse 73 73 73 Resp 18 B/P (MAP) 128/66 128/66 128/66 Pulse Ox 95 O2 Delivery Room Air Intake and Output 07/10/20 07/10/20 07/11/20 15:00 23:00 07:00 Intake Total 240 ml 500 ml 960 ml Output Total 450 ml 500 ml Balance 240 ml 50 ml 460 ml Justicifation of Admission Dx: Justifications for Admission: Justification of Admission Dx: Yes Angina: Symp at Rest REGGIE BRUNNER MD Jul 11, 2020 10:20
[2020-07-11 10:46] VITALS: BP 115/54
--- NOTE | 2020-07-11 11:41 | PDOC3 ---
Discharge Summary Date of Admission: Jul 09, 2020 Date of Discharge: Jul 11, 2020 Follow-Up: 3-5 days Admitting Diagnosis comment: hospital course consults cardiology complications none procedures cvc monitoring Chief Complaint Chief Complaint discharge dx 79-year-old male with a history of known coronary artery disease, who presents with chest pain. He does have moderate dementia. His gives most of the history. reports that the pain was fairly significant prior to arrival and resolved with nitroglycerin. no angina noted today We will plan to consult Cardiology and do serial troponins. were neg x 2 1. Hypertension. 2. 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 3. Chronic kidney disease stage 3. 4. Diabetes. 5. Severe protein caloric malnutrition. 6. moderate dementia PLAN: See orders. Cardiology consult. Anticipate length of stay less than 48 hours. urine culture he has had cardiac catheterization approximately 1 year ago and was recommended medical management. 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 pursue conservative management secondary to his age, dementia 07/11 troponin i neg x 2 d/c - d/c planning 27 min History of Present Illness History of Present Illness CHIEF COMPLAINT: Chest pain. HISTORY OF PRESENT ILLNESS: This is a 79-year-old male with a history of dementia, was seen in the Emergency Room after reporting chest pain to his prior to admission. Apparently, EMS was summoned and they were taken here given nitroglycerin en route as well as aspirin by EMS. The patient reports his symptoms have improved. His reports that she had hip surgery and they are visiting his daughter here in [place]. They normally live in [place] and received most of the care from [facility] or from the [facility] location. The patient denies any vomiting or nausea. He is a poor historian because of dementia. PAST MEDICAL HISTORY: Significant for dementia, coronary artery disease with angioplasty, history of multiple myeloma, hypertension, recurrent UTIs, history of urine retention, chronic kidney disease and diabetes. await records from [place] FAMILY HISTORY: Positive for hypertension. SOCIAL HISTORY: No tobacco, alcohol or drug use. CURRENT MEDICATIONS: Please see medication reconciliation sheet. ALLERGIES: INCLUDE PROMETHAZINE, SULFA, ADHESIVE TAPE, AND TRAMADOL. REVIEW OF SYSTEMS: Again, limited by dementia, but no fever or chills. Denies nasal congestion. Denies cough or shortness of breath. His chest pain is almost resolved. Denies swollen glands. Denies depression or anxiety. Denies focal weakness, bloody stools, nausea, vomiting or edema. Denies fever. Chest pain is improved. , was located retrosternally without radiation. Vitals Vitals Vital Signs Date Time Temp Pulse Resp B/P (MAP) Pulse Ox O2 Delivery O2 Flow Rate FiO2 07/11/20 09:26 18 95 Room Air 07/11/20 09:23 73 128/66 07/11/20 07:00 98.7 98.7 Physical Exam Physical Exam He is nontoxic, no acute distress. GENERAL: Resistant to opening his eyes, atraumatic. Extraocular muscles are intact. Sclerae are anicteric.: Mucous membranes are moist. He has some periodontal disease present. Tolerating secretions. Uvula is midline. NECK: Supple. CARDIOVASCULAR: Regular rate and rhythm without murmur, S3 or S4. LUNGS: Clear. Capillary refill is less than 2 seconds. No wheezing, rales or rhonchi. ABDOMEN: Soft, without guarding or tenderness. EXTREMITIES: Without edema or erythema. SKIN: Warm without significant lesions. He is not oriented. No gross neurologic deficits. He moves extremities fairly well with some tremor. Gait was not tested. Mood is normal and flat, generally cooperative. Breasts were not examined. RECTAL: Deferred. EXTREMITIES: Without cyanosis. General: Cooperative, No acute distress Heart: Regular rate, Normal S1, Normal S2 Lungs: Clear Abdomen: Normal bowel sounds, Soft, No tenderness Extremities: No cyanosis, No edema, No tenderness/swelling Skin: No significant lesion Brief Hospital Course Mr. Hardin is a 79 old [sex] who presented with [chest pain ] CONDITION AT DISCHARGE: Improved Discharge Medications Current Medications Aspirin (Aspirin Chewable) 324 mg 1X ONCE PO ; Start 07/09/20 at 13:30; Stop 07/09/20 at 14:14; Status DC Sodium Chloride (Normal Saline Flush) 3 ml QSHIFT PRN IV AFTER MEDS AND BLOOD DRAWS; Start 07/09/20 at 15:30 Sodium Chloride 1,000 ml @ 80 mls/hr [id number] IV Last administered on 07/11/20at 04:39; Start 07/09/20 at 15:30 Ondansetron HCl (Zofran) 4 mg PRN Q4HRS PRN IV NAUSEA/VOMITING; Start 07/09/20 at 15:30 Acetaminophen (Tylenol) 650 mg PRN Q4HRS PRN PO TEMP OVER 100.4F OR MILD PAIN Last administered on 07/10/20at 04:14; Start 07/09/20 at 15:30 Acetaminophen (Tylenol Supp) 650 mg PRN Q4HRS PRN [place] TEMP OVER 100.4F OR MILD PAIN; Start 07/09/20 at 15:30 Al Hydroxide/Mg Hydroxide (Mylanta Plus Xs) 30 ml PRN DAILY PRN PO HEARTBURN / GAS; Start 07/09/20 at 15:30 Sodium Monofluorophosphate (Fleet Adult) 133 ml PRN DAILY PRN [place] CONSTIPATION; Start 07/09/20 at 15:30 Docusate Sodium (Colace) 100 mg PRN BID PRN PO HARD STOOLS Last administered on 07/10/20at 14:31; Start 07/09/20 at 15:30 Albuterol Sulfate (Ventolin Neb Soln) 2.5 mg PRN Q4HRS PRN NEB SHORTNESS OF BREATH; Start 07/09/20 at 15:30 Guaifenesin (Robitussin) 200 mg PRN Q4HRS PRN PO COUGH; Start 07/09/20 at 15:30 Enoxaparin Sodium (Lovenox 40mg Syringe) 40 mg Q24H SQ Last administered on 07/10/20at 20:31; Start 07/09/20 at 21:00 Calcium Carbonate/ Glycine (Tums) 500 mg PRN AFTMEALHC PRN PO INDIGESTION Last administered on 07/10/20at 04:14; Start 07/10/20 at 04:15 Acetaminophen (Tylenol) 650 mg PRN DAILY PRN PO pain or fever; Start 07/10/20 at 09:45; Status UNV Amlodipine Besylate (Norvasc) 7.5 mg DAILY PO Last administered on 07/11/20at 09:23; Start 07/10/20 at 10:00 Aspirin (Aspirin Chewable) 81 mg DAILY PO Last administered on 07/11/20at 09:23; Start 07/10/20 at 10:00 Atorvastatin Calcium (Lipitor) 40 mg QHS PO Last administered on 07/10/20at 20:32; Start 07/10/20 at 21:00 Carbidopa/Levodopa (Sinemet 25/100) 1.5 tab TID PO Last administered on 07/11/20at 09:24; Start 07/10/20 at 14:00 Clopidogrel Bisulfate (Plavix) 75 mg DAILY PO Last administered on 07/11/20 09:23; Start 07/10/20 at 11:00 Cyanocobalamin (Vitamin B-12) 1,000 mcg QMONTH IM ; Start 08/09/20 at 09:00 Dexamethasone (Decadron) 4 mg QTH PO ; Start 07/15/20 at 16:00 Finasteride (Proscar) 5 mg DAILY PO Last administered on 07/11/20 09:24; Start 07/10/20 at 11:00 Fluticasone Propionate (Flonase) 2 spray PRN DAILY PRN NS ALLERGIES; Start 07/10/20 at 09:45 Levothyroxine Sodium (Synthroid) 525 mcg QSU PO ; Start 07/11/20 at 16:00 Lidocaine (Lidoderm) 1 patch DAILY TP Last administered on 07/11/20at 09:28; Start 07/10/20 at 11:00 Lidocaine/ Prilocaine (Emla) 60 vicky TID PRN PRN TP PAIN; Start 07/10/20 at 09:45 Lorazepam (Ativan) 0.5 mg Q8HRS PO Last administered on 07/11/20at 04:44; Start 07/10/20 at 14:00 Memantine (Namenda) 10 mg BID PO Last administered on 07/11/20 09:23; Start 07/10/20 at 11:00 Metformin HCl (Glucophage) 500 mg TIDAC PO Last administered on 07/11/20 09:23; Start 07/10/20 at 11:30 Metoprolol Succinate (Toprol Xl) 50 mg DAILY PO Last administered on 07/11/20at 09:23; Start 07/10/20 at 11:00 Nystatin (Nystop) 1 vicky QID TP Last administered on 07/10/20at 20:31; Start 07/10/20 at 13:00 Oxycodone HCl (Roxicodone) 5 mg Q6HRS PO Last administered on 07/11/20 09:26; Start 07/10/20 at 12:00 Acyclovir (Zovirax) 800 mg BID PO Last administered on 07/11/20at 09:24; Start 07/10/20 at 21:00 Cephalexin HCl (Keflex) 500 mg QMWF PO ; Start 07/12/20 at 16:00 Non-Formulary Medication (Donepezil Hcl ) 1 tab DAILY PO ; Start 07/11/20 at 09:00; Status UNV Gabapentin (Neurontin) 200 mg HS PO Last administered on 07/10/20at 20:31; Start 07/10/20 at 21:00 Isosorbide Mononitrate (Imdur) 120 mg DAILY PO Last administered on 07/11/20at 09:22; Start 07/10/20 at 11:00 Multivitamins (Thera M Plus) 1 tab DAILY PO Last administered on 07/11/20at 09:23; Start 07/11/20 at 09:00 Losartan Potassium (Cozaar) 100 mg QWE PO ; Start 07/14/20 at 16:00 Oxybutynin Chloride (Ditropan) 2.5 mg BID PO Last administered on 07/10/20at 20:31; Start 07/10/20 at 11:00 Non-Formulary Medication (Oxycodone Hcl (Oxycodone Hcl Immed.release)) 1 tab DAILY PRN PO pain; Start 07/10/20 at 09:45; Status UNV Phenazopyridine HCl (Pyridium) 100 mg PRN TID PRN PO URINARY PAIN; Start 07/10/20 at 10:45 Folic Acid (Folic Acid) 1 mg NOON PO Last administered on 07/10/20at 11:13; Start 07/10/20 at 12:00 Vitamin D (Vitamin D3) 2,000 unit NOON PO Last administered on 07/10/20at 11:13; Start 07/10/20 at 12:00 Active Scripts Active Reported Noxifol-D3 2,500 Unit-1 mg Tab (Vitamin D3/Folic Acid) 2,500 Unit Tablet 1 Tab PO NOON 30 Days Synthroid (Levothyroxine Sodium) 150 Mcg Tablet 3.5 Tab PO QSU Phenazopyridine Hcl 100 Mg Tablet 1 Tab PO TID 2 Days Roxicodone (Oxycodone HCl) 5 Mg Tablet 5 Mg PO Q6HRS Oxycodone Hcl Immed.release (Oxycodone Hcl) 10 Mg Tablet 1 Tab PO DAILY PRN MDD 4 Tablet(s) 5 Days Ditropan Xl (Oxybutynin Chloride) 5 Mg Tab.er.24 1 Tab PO DAILY 30 Days Benicar (Olmesartan Medoxomil) 20 Mg Tablet 1 Tab PO QWE 30 Days Nystatin 15 Gm Powder 1 Vicky TP QID 7 Days apply to affected area(s) Multi Vitamin Daily (Multivitamin) 1 Each Tablet 1 Tab PO DAILY 30 Days Toprol Xl (Metoprolol Succinate) 25 Mg Tab.er.24h 2 Tab PO DAILY 30 Days Metformin Hcl 500 Mg Tablet 500 Mg PO TIDAC Namenda (Memantine Hcl) 10 Mg Tablet 1 Tab PO BID Ativan (Lorazepam) 0.5 Mg Tablet 0.5 Mg PO Q8HRS Lidocaine 1 Each Adh..patch 1 Each TP DAILY Lidocaine-Prilocaine Cream (Lidocaine/Prilocaine) 30 Gm Cream..g. 60 Gm TP TID PRN PRN Isosorbide Mononitrate Er (Isosorbide Mononitrate) 120 Mg Tab.er.24h 1 Tab PO DAILY 30 Days Gabapentin 600 Mg Tablet 200 Mg PO HS Fluticasone Propionate Nasal [place] (Fluticasone Propionate) 16 Gm [place].susp 2 [place] NS DAILY PRN Finasteride 5 Mg Tablet 1 Tab PO DAILY Donepezil Hcl 23 Mg Tablet 1 Tab PO DAILY 30 Days Decadron (Dexamethasone) 4 Mg Tablet 1 Tab PO QTH 3 Days Cyanocobalamin Injection (Cyanocobalamin (Vitamin B-12)) 1,000 Mcg/1 Ml Vial 1 Ml IM QMONTH Clopidogrel (Clopidogrel Bisulfate) 75 Mg Tablet 1 Tab PO DAILY Cephalexin 500 Mg Tablet 1 Tab PO QMWF Carbidopa-Levodopa 25-100 Tab (Carbidopa/Levodopa) 1 Each Tablet 1.5 Tab PO TID 30 Days Atorvastatin Calcium 40 Mg Tablet 1 Tab PO QHS Aspirin 81 Mg Tab.chew 1 Tab PO DAILY Norvasc (Amlodipine Besylate) 5 Mg Tablet 1.5 Tab PO DAILY Acyclovir 800 Mg Tablet 1 Tab PO BID Acetaminophen 325 Mg Tablet 2 Tab PO PRN DAILY PRN 30 Days Vital Signs Vital Signs Date Time Temp Pulse Resp B/P (MAP) Pulse Ox O2 Delivery O2 Flow Rate FiO2 07/11/20 10:46 99.0 86 16 115/54 (74) 93 Room Air 99.0 Labs Laboratory Tests Test 07/09/20 13:55 07/09/20 16:39 07/09/20 17:07 07/10/20 06:30 White Blood Count 8.0 x10^3/uL (4.0-11.0) Red Blood Count 3.15 x10^6/uL (4.30-5.70) Hemoglobin 10.3 g/dL (13.0-17.5) Hematocrit 31.2 % (39.0-53.0) Mean Corpuscular Volume 99 fL (79-100) Mean Corpuscular Hemoglobin 33 pg (25-35) Mean Corpuscular Hemoglobin Concent 33 g/dL (31-37) Red Cell Distribution Width 14.8 % (11.5-14.5) Platelet Count 240 x10^3/uL (140-400) Neutrophils (%) (Auto) 82 % (31-73) Lymphocytes (%) (Auto) 12 % (24-48) Monocytes (%) (Auto) 4 % (0-9) Eosinophils (%) (Auto) 1 % (0-3) Basophils (%) (Auto) 0 % (0-3) Neutrophils # (Auto) 6.6 x10^3/uL (1.8-7.7) Lymphocytes # (Auto) 1.0 x10^3/uL (1.0-4.8) Monocytes # (Auto) 0.3 x10^3/uL (0.0-1.1) Eosinophils # (Auto) 0.1 x10^3/uL (0.0-0.7) Basophils # (Auto) 0.0 x10^3/uL (0.0-0.2) Sodium Level 143 mmol/L (136-145) 147 mmol/L (136-145) Potassium Level 4.3 mmol/L (3.5-5.1) 4.1 mmol/L (3.5-5.1) Chloride Level 108 mmol/L (98-107) 114 mmol/L (98-107) Carbon Dioxide Level 25 mmol/L (21-32) 24 mmol/L (21-32) Anion Gap 10 (6-14) 9 (6-14) Blood Urea Nitrogen 34 mg/dL (8-26) 32 mg/dL (8-26) Creatinine 1.8 mg/dL (0.7-1.3) 1.7 mg/dL (0.7-1.3) Estimated GFR (Cockcroft-Gault) 44.4 47.4 BUN/Creatinine Ratio 19 (6-20) Glucose Level 235 mg/dL (70-99) 139 mg/dL (70-99) Calcium Level 10.8 mg/dL (8.5-10.1) 10.1 mg/dL (8.5-10.1) Total Bilirubin 0.2 mg/dL (0.2-1.0) Aspartate Amino Transf (AST/SGOT) 18 U/L (15-37) Alanine Aminotransferase (ALT/SGPT) 9 U/L (16-63) Alkaline Phosphatase 81 U/L (46-116) Troponin I Quantitative < 0.017 ng/mL (0.000-0.055) < 0.017 ng/mL (0.000-0.055) < 0.017 ng/mL (0.000-0.055) ZL-Gwq-R-Type Natriuretic Peptide 212 pg/mL (0-449) Total Protein 6.8 g/dL (6.4-8.2) Albumin 2.5 g/dL (3.4-5.0) Albumin/Globulin Ratio 0.6 (1.0-1.7) Urine Collection Type U cath Urine Color Yellow Urine Clarity Clear Urine pH 5.5 (<5.0-8.0) Urine Specific [place] 1.025 (1.000-1.030) Urine Protein 100 mg/dL (NEG-TRACE) Urine Glucose (UA) Negative mg/dL (NEG) Urine Ketones (Stick) Negative mg/dL (NEG) Urine Blood Moderate (NEG) Urine Nitrite Positive (NEG) Urine Bilirubin Negative (NEG) Urine Urobilinogen Dipstick 0.2 mg/dL (0.2 mg/dL) Urine Leukocyte Esterase Moderate (NEG) Urine RBC 6-10 /HPF (0-2) Urine WBC 20-40 /HPF (0-4) Urine Squamous Epithelial Cells Few /LPF Urine Bacteria Many /HPF (0-FEW) Urine Hyaline Casts Few /HPF Urine Mucus Slight /LPF Test 07/10/20 07:12 07/10/20 11:23 07/10/20 16:13 07/10/20 20:41 Glucose (Fingerstick) 153 mg/dL (70-99) 201 mg/dL (70-99) 197 mg/dL (70-99) 194 mg/dL (70-99) Test 07/11/20 07:01 07/11/20 11:29 Glucose (Fingerstick) 150 mg/dL (70-99) 296 mg/dL (70-99) Laboratory Tests Test 07/10/20 16:13 07/10/20 20:41 07/11/20 07:01 07/11/20 11:29 Glucose (Fingerstick) 197 mg/dL (70-99) 194 mg/dL (70-99) 150 mg/dL (70-99) 296 mg/dL (70-99) Allergies Allergies Coded Allergies Type Severity Reaction Last Updated Verified promethazine Allergy Severe serotonin syndrom 07/09/20 Yes sulfamethoxazole Allergy Intermediate n/v 07/09/20 Yes trimethoprim Allergy Intermediate n/v 07/09/20 Yes adhesive tape Allergy Mild rash 07/09/20 Yes tramadol Allergy Mild tremors 07/09/20 Yes Disposition/Orders: D/C to Home Justicifation of Admission Dx: Justifications for Admission: Justification of Admission Dx: Yes Angina: [facility] REGGIE BRUNNER MD Jul 11, 2020 11:41
[2020-07-11] MEDS ORDERED: DOCU-153 PO (11:45)
[2020-07-11] MEDS ORDERED: GUAI100L12 PO (11:45)
[2020-07-11] MEDS ORDERED: ALBU2.5V8 NEB (11:45)
[2020-07-11] MEDS ORDERED: CALC200T23 PO (11:45)
--- NOTE | 2020-07-11 11:47 | SNU/HH DC ---
DISCHARGE WITH HOME HEALTH DISCHARGE INFORMATION: Condition on Discharge: Stable CODE STATUS: Code Status: Full HOME HEALTH: Face to Face: I certify this patient is under my care and that I, or a nurse practitioner or physician's assistant farm operations manager working with me, had a face to face encounter that meets the physician face to face encounter requirements with this patient on []. Medical Complications: CABG, Dementia RN For Eval/Treatment: Yes Physical Therapy For: Evalulation/Treatment Occupational Therapy For: Evaluation/Treatment Speech Language Pathology For: Evaluation/Treatment Home Health Aide For: Self-care SIGNAL FITTER For: Community Resources Pt Meets Homebound Status: Poor coordination w/ amb., Poor cognition, Psychological condition, Unable to negotiate home POST DISCHARGE ORDERS: Activity Instructions for Disc: Activity as tolerated DIET AFTER DISCHARGE: ADA FOLLOW-UP: PCP to follow Home Health: pcp for home health 5-7 days CERTIFICATION STATEMENT: Certification Statement: Certification Statement: Based on the above finding, I certify that this patient is confined to the home and needs intermittent residential care, physical therapy and/or speech therapy, or continues to need occupational therapy.~ This patient is under my care, and I have initiated the establishment of the plan of care.~ This patient will be followed by myself or a community physician who will periodically review the plan of care. Home Meds Active Scripts Docusate Sodium (DOK) 100 Mg Capsule, 100 MG PO PRN BID PRN for HARD STOOLS for 30 Days, #60 CAP Prov:REGGIE BRUNNER MD 07/11/20 Calcium Carbonate (CALCIUM CARBONATE) 200 Mg Tab.chew, 500 MG PO PRN AFTMEALHC PRN for INDIGESTION for 14 Days, #60 TAB.CHEW Prov:REGGIE BRUNNER MD 07/11/20 Guaifenesin (GUAIFENESIN) 100 Mg/5 Ml Liquid, 200 MG PO PRN Q4HRS PRN for COUGH for 30 Days, #120 LIQUID Prov:REGGIE BRUNNER MD 07/11/20 Albuterol Sulfate (Proair Hfa) 8.5 Gm Hfa.aer.ad, 2.5 MG NEB PRN Q4HRS PRN for SHORTNESS OF BREATH for 30 Days, #1 INHALER Prov:REGGIE BRUNNER MD 07/11/20 Reported Medications Vitamin D3/Folic Acid (Noxifol-D3 2,500 Unit-1 mg Tab) 2,500 Unit Tablet, 1 TAB PO NOON for 30 Days, #30 TAB 0 Refills 07/09/20 Levothyroxine Sodium (SYNTHROID) 150 Mcg Tablet, 3.5 TAB PO QSU, #30 TAB 5 Refills 07/09/20 Phenazopyridine Hcl (PHENAZOPYRIDINE HCL) 100 Mg Tablet, 1 TAB PO TID for urinary discomfort for 2 Days, #6 TAB 0 Refills 07/09/20 Oxycodone HCl (Roxicodone) 5 Mg Tablet, 5 MG PO Q6HRS for pain, TAB 07/09/20 Oxycodone Hcl (OXYCODONE HCL IMMED.RELEASE) 10 Mg Tablet, 1 TAB PO DAILY PRN for pain MDD 4 Tablet(s) for 5 Days, #20 TAB 0 Refills 07/09/20 Oxybutynin Chloride (DITROPAN XL) 5 Mg Tab.er.24, 1 TAB PO DAILY for 30 Days, #30 TAB 0 Refills 07/09/20 Olmesartan Medoxomil (BENICAR) 20 Mg Tablet, 1 TAB PO QWE for 30 Days, #30 TAB 0 Refills 07/09/20 Nystatin (NYSTATIN) 15 Gm Powder, 1 YUSRA TP QID for 7 Days, #1 BOTTLE 0 Refills apply to affected area(s) 07/09/20 Multivitamin (MULTI VITAMIN DAILY) 1 Each Tablet, 1 TAB PO DAILY for 30 Days, #30 TAB 0 Refills 07/09/20 Metoprolol Succinate (TOPROL XL) 25 Mg Tab.er.24h, 2 TAB PO DAILY for 30 Days, #60 TAB 0 Refills 07/09/20 Metformin Hcl (METFORMIN HCL) 500 Mg Tablet, 500 MG PO TIDAC for ANTI-DIABETIC, TAB 0 Refills 07/09/20 Memantine Hcl (NAMENDA) 10 Mg Tablet, 1 TAB PO BID, #180 TAB 1 Refill 07/09/20 Lorazepam (ATIVAN) 0.5 Mg Tablet, 0.5 MG PO Q8HRS for anxiety, TAB 07/09/20 Lidocaine (Lidocaine) 1 Each Adh..patch, 1 EACH TP DAILY, PATCH 07/09/20 Lidocaine/Prilocaine (LIDOCAINE-PRILOCAINE CREAM) 30 Gm Cream..g., 60 GM TP TID PRN PRN for PAIN, EACH 07/09/20 Isosorbide Mononitrate (ISOSORBIDE MONONITRATE ER) 120 Mg Tab.er.24h, 1 TAB PO DAILY for 30 Days, #30 TAB 0 Refills 07/09/20 Gabapentin (GABAPENTIN) 600 Mg Tablet, 200 MG PO HS for NEUROGENIC PAIN, TAB 07/09/20 Fluticasone Propionate (FLUTICASONE PROPIONATE NASAL SPRAY) 16 Gm [place].susp, 2 SPRAY NS DAILY PRN for ITCHING, #1 INHALER 11 Refills 07/09/20 Finasteride (FINASTERIDE) 5 Mg Tablet, 1 TAB PO DAILY, #30 TAB 11 Refills 07/09/20 Donepezil Hcl (DONEPEZIL HCL) 23 Mg Tablet, 1 TAB PO DAILY for 30 Days, #30 TAB 0 Refills 07/09/20 Dexamethasone (Decadron) 4 Mg Tablet, 1 TAB PO QTH for 3 Days, #3 TAB 0 Refills 07/09/20 Cyanocobalamin (Vitamin B-12) (CYANOCOBALAMIN INJECTION) 1,000 Mcg/1 Ml Vial, 1 ML IM QMONTH, #1 VIAL 3 Refills 07/09/20 Clopidogrel Bisulfate (CLOPIDOGREL) 75 Mg Tablet, 1 TAB PO DAILY, #90 TAB 1 Refill 07/09/20 Cephalexin (CEPHALEXIN) 500 Mg Tablet, 1 TAB PO QMWF, #40 TAB 07/09/20 Carbidopa/Levodopa (CARBIDOPA-LEVODOPA 25-100 TAB) 1 Each Tablet, 1.5 TAB PO TID for 30 Days, #135 TAB 0 Refills 07/09/20 Atorvastatin Calcium (ATORVASTATIN CALCIUM) 40 Mg Tablet, 1 TAB PO QHS, #90 TAB 3 Refills 07/09/20 Aspirin (ASPIRIN) 81 Mg Tab.chew, 1 TAB PO DAILY, #30 TAB 3 Refills 07/09/20 Amlodipine Besylate (NORVASC) 5 Mg Tablet, 1.5 TAB PO DAILY, #30 TAB 5 Refills 07/09/20 Acyclovir (ACYCLOVIR) 800 Mg Tablet, 1 TAB PO BID, #50 TAB 07/09/20 Acetaminophen (ACETAMINOPHEN) 325 Mg Tablet, 2 TAB PO PRN DAILY PRN for pain or fever for 30 Days, #30 TAB 0 Refills 07/09/20 REGGIE BRUNNER MD Jul 11, 2020 11:47
--- NOTE | 2020-07-11 12:20 | PDOC ---
PROGRESS NOTES Date of Service: DATE: 07/11/20 TIME: 12:19 Subjective Subjective No further chest pain Objective Objective Vital Signs Date Time Temp Pulse Resp B/P (MAP) Pulse Ox O2 Delivery O2 Flow Rate FiO2 07/11/20 12:08 18 93 Room Air 07/11/20 10:46 99.0 86 115/54 (74) 99.0 Intake and Output 07/11/20 07:00 Intake Total 1700 ml Output Total 950 ml Balance 750 ml Intake Oral 740 ml IV Total 960 ml Output Urine Total 950 ml # Bowel Movements 2 Physical Exam Abdomen: Normal bowel sounds, Soft, No tenderness Heart: Regular rate, Normal S1, Normal S2 Extremities: No cyanosis, No edema, No tenderness/swelling General: Cooperative, No acute distress HEENT: Atraumatic Lungs: Clear to auscultation Skin: No significant lesion Assessment Assessment 1. Chest pain with mixed features in a patient with known history of coronary artery disease s/p PCI/stent placement several years ago at . Myocardial infarction has been ruled out. According to his , he has had cardiac catheterization approximately 1 year ago and was recommended medical management. Records from primary supervisor slate splitting pending. We will pursue conservative management secondary to his age, dementia and comorbidities. Okay for discharge from cardiac standpoint. 2. Hypertension: Controlled 3. Hyperlipidemia: Continue statin therapy 4. Diabetes mellitus type 2: Treat per IM 5. Recurrent UTI: On antibiotics 6. PCM, Parkinson's disease, dementia: Per IM Comment Review of Relevant I have reviewed the following items dilan (where applicable) has been applied. Labs Laboratory Tests Test 07/10/20 16:13 07/10/20 20:41 07/11/20 07:01 07/11/20 11:29 Glucose (Fingerstick) 197 mg/dL (70-99) 194 mg/dL (70-99) 150 mg/dL (70-99) 296 mg/dL (70-99) Medications Current Medications Acyclovir (Zovirax) 800 mg BID PO Last administered on 07/11/20at 09:24; Start 07/10/20 at 21:00 Atorvastatin Calcium (Lipitor) 40 mg QHS PO Last administered on 07/10/20at 20:32; Start 07/10/20 at 21:00 Carbidopa/Levodopa (Sinemet 25/100) 1.5 tab TID PO Last administered on 07/11/20at 09:24; Start 07/10/20 at 14:00 Cephalexin HCl (Keflex) 500 mg QMWF PO ; Start 07/12/20 at 16:00 Cyanocobalamin (Vitamin B-12) 1,000 mcg QMONTH IM ; Start 08/09/20 at 09:00 Dexamethasone (Decadron) 4 mg QTH PO ; Start 07/15/20 at 16:00 Gabapentin (Neurontin) 200 mg HS PO Last administered on 07/10/20at 20:31; Start 07/10/20 at 21:00 Levothyroxine Sodium (Synthroid) 525 mcg QSU PO ; Start 07/11/20 at 16:00 Lorazepam (Ativan) 0.5 mg Q8HRS PO Last administered on 07/11/20at 04:44; Start 07/10/20 at 14:00 Losartan Potassium (Cozaar) 100 mg QWE PO ; Start 07/14/20 at 16:00 Multivitamins (Thera M Plus) 1 tab DAILY PO Last administered on 07/11/20at 09:23; Start 07/11/20 at 09:00 Non-Formulary Medication (Donepezil Hcl ) 1 tab DAILY PO ; Start 07/11/20 at 09:00; Status UNV Nystatin (Nystop) 1 kaveh QID TP Last administered on 07/11/20at 09:00; Start 07/10/20 at 13:00 Vitals/I & O Vital Sign - Last 24 Hours 07/10/20 07/10/20 07/10/20 07/10/20 14:39 16:21 17:21 19:44 Temp 97.8 97.8 Pulse 82 Resp 16 B/P (MAP) 119/56 (77) Pulse Ox 97 97 97 O2 Delivery Room Air Room Air Room Air Room Air 07/10/20 07/10/20 07/11/20 07/11/20 19:44 22:40 01:05 02:05 Temp 98.2 98.5 98.2 98.5 Pulse 73 69 Resp 14 16 18 18 B/P (MAP) 142/55 (84) 122/56 (78) Pulse Ox 96 96 O2 Delivery Room Air Room Air Room Air Room Air 07/11/20 07/11/20 07/11/2021 03:59 07:00 08:00 09:22 Temp 98.8 98.7 98.8 98.7 Pulse 59 73 73 Resp 16 16 B/P (MAP) 139/55 (83) 128/66 (86) 128/66 Pulse Ox 97 95 O2 Delivery Room Air Room Air Room Air 07/11/20 07/11/20 07/11/20 07/11/20 09:23 09:23 09:26 10:46 Temp 99.0 99.0 Pulse 73 73 86 Resp 18 16 B/P (MAP) 128/66 128/66 115/54 (74) Pulse Ox 95 93 O2 Delivery Room Air Room Air 07/11/20 12:08 Resp 18 Pulse Ox 93 O2 Delivery Room Air Intake and Output 07/10/20 07/10/20 07/11/20 15:00 23:00 07:00 Intake Total 240 ml 500 ml 960 ml Output Total 450 ml 500 ml Balance 240 ml 50 ml 460 ml GAVIN MOURA MD Jul 11, 2020 12:20
--- NOTE | 2020-07-11 15:15 | NUR ---
DISCHARGED PATIENT HOME. DISCHARGE INSTRUCTIONS GIVEN.PIV AND MONITOR REMOVED. ESCORTED PATIENT OFF UNIT PER WHEELCHAIR INT A PRIVATE VEHICLE.
[2020-07-11] MEDS ORDERED: LEVOTHYROXINE 150 MCG TABLET PO SCH (16:00)
[2020-07-12] MEDS ORDERED: CEPHALEXIN 250 MG CAPSULE. PO SCH (16:00)
[2020-07-14] MEDS ORDERED: LOSARTAN POTASSIUM 50 MG TABLET. PO SCH (16:00)
[2020-07-15] MEDS ORDERED: DEXAMETHASONE 4 MG TABLET PO SCH (16:00)
[2020-08-09] MEDS ORDERED: CYANOCOBALAMIN (VITAMIN B-12) 1,000 MCG/ML VIAL IM SCH (09:00)
== END 2020-07-11 15:15 | disposition home or self-care (01) ==
LOC: ER 13:18 → ED HOLD 15:00 → ER 16:54 → 2 NORTH 18:37
PROVIDERS: ADMIT Family Medicine; ATTEND Family Medicine
DX: I25.10 Atherosclerotic heart disease of native coronary artery without angina pectoris (principal); R07.89 Other chest pain; F02.80 Dementia in other diseases classified elsewhere, unspecified severity, without behavioral disturbance, psychotic disturbance, mood disturbance, and anxiety; I12.9 Hypertensive chronic kidney disease with stage 1 through stage 4 chronic kidney disease, or unspecified chronic kidney disease; N18.30 Chronic kidney disease, stage 3 unspecified; I45.10 Unspecified right bundle-branch block; E11.22 Type 2 diabetes mellitus with diabetic chronic kidney disease; E43 Unspecified severe protein-calorie malnutrition; G20 Parkinson's disease; E78.5 Hyperlipidemia, unspecified; N39.0 Urinary tract infection, site not specified; E03.9 Hypothyroidism, unspecified; Z87.440 Personal history of urinary (tract) infections; Z79.02 Long term (current) use of antithrombotics/antiplatelets; Z98.61 Coronary angioplasty status; Z79.82 Long term (current) use of aspirin; Z79.84 Long term (current) use of oral hypoglycemic drugs
CPT/HCPCS: 36415; 71045; 80048; 80053; 81001; 82962; 83880; 84484; 85025; 87086; 93005; 96360; 96361; 96372; 99285; G0378; J1650; J7030; G0379

== ENCOUNTER 2020-07-19 01:12 | Emergency (ER) | payer MEDICARE, BC ==
[~2020-07-19] VITALS: Ht 167.6 cm; Wt 66.7 kg
[~2020-07-19 01:12] MED LIST: ACET325T21 PO; ACYC800T PO; ALBU2.5V8 NEB; AMLO5TAB4 PO; ASPI-630 PO; ATOR40TA59 PO; CALC200T23 PO; CARB1TAB22 PO; CEPH500T PO; CLOP75TA PO; CYAN10002 IM; DEXA4TAB63 PO; DOCU-153 PO; DONE23TA PO; FINA5TAB4 PO; FLUT16SP NS; GABA600T7 PO; GUAI100L12 PO; ISOS120T4 PO; LEVO150T PO; LIDO1ADH63 TP; LIDO30CR TP; LORA0.5T96 PO; MEMA10TA PO; METF500T16 PO; METO25TA2 PO; MULT-245 PO; NYST15PO9 TP; OLME20TA17 PO; OXYB5TAB33 PO; OXYC10TA PO; OXYC5TAB88 PO; PHEN-443 PO; VITA25006 PO
[2020-07-19 01:49] LABS: BASO % 0 % (0-3); EOS # 0.1 x10^3/uL (0.0-0.7); EOS % 2 % (0-3); HEMATOCRIT 30.9 % (39.0-53.0); HEMOGLOBIN 10.3 g/dL (13.0-17.5); LYMPH % 12 % (24-48); MEAN CORPUSCULAR HEMOGLOBIN 32 pg (25-35); MEAN CORPUSCULAR HGB CONC 33 g/dL (31-37); MEAN CORPUSCULAR VOLUME 97 fL (79-100); MONO # 0.4 x10^3/uL (0.0-1.1); MONO % 5 % (0-9); NEUT # 6.7 x10^3/uL (1.8-7.7); NEUT % 81 % (31-73); PLATELET COUNT 444 x10^3/uL (140-400); RED BLOOD COUNT 3.19 x10^6/uL (4.30-5.70); RED CELL DISTRIBUTION WIDTH 14.7 % (11.5-14.5); WHITE BLOOD COUNT 8.3 x10^3/uL (4.0-11.0)
[2020-07-19 01:50] LABS: BILIRUBIN,URINE NEGATIVE (NEG); CLARITY,URINE TURBID; COLOR,URINE YELLOW; NITRITE,URINE POSITIVE (NEG); PROTEIN,URINE 100 mg/dL (NEG-TRACE); UROBILINOGEN,URINE 0.2 mg/dL (0.2 mg/dL)
[2020-07-19 01:56] LABS: BACTERIA,URINE MANY /HPF (0-FEW); RBC,URINE OCC /HPF (0-2); WBC,URINE TNTC /HPF (0-4)
[2020-07-19 01:58] LABS: CALCIUM 10.8 mg/dL (8.5-10.1); CREATININE 1.5 mg/dL (0.7-1.3); GFR 54.8; POTASSIUM 4.3 mmol/L (3.5-5.1)
[2020-07-19 02:01] LABS: PROTHROMBIN TIME PATIENT 14.2 SEC (11.7-14.0)
--- NOTE | 2020-07-19 02:02 | PHYS DOC ---
Past Medical History Past Medical History: CAD, PA Additional Past Medical Histor: PARKISONS, ALZEHIMERS, MULT. MYELOME Past Surgical History: Other Additional Past Surgical Histo: CARDIAC STENT Smoking Status: Former Smoker Alcohol Use: None Adult General Chief Complaint Chief Complaint: TESTICULAR PAIN OR INJURY [facility] HPI Patient is a 79 year old male with a past medical history including Parkinson's dementia, Alzheimer's, CAD status post angioplasty, multiple myeloma, h ypertension, urinary retention with chronic indwelling Mcginnis catheter, CKD and diabetes now presenting the emergency department for scrotal swelling. Patient was admitted from the emergency department approximately 2 weeks ago she came in with reported worsening chest pain. Of note the patient is a poor historian secondary to dementia. No significant history of able to be derived from caretakers. According to EMS they were called because the patient was noted to have worsening swelling around the testicles left probably on the left and there appeared to be some drainage coming from the area. No reported history of fevers, nausea vomiting or other changes. Review of Systems Review of Systems Constitutional: Denies fever or chills [] Eyes: Denies change in visual acuity, redness, or eye pain [] HENT: Denies nasal congestion or sore throat [] Respiratory: Denies cough or shortness of breath [] Cardiovascular: No additional information not addressed in HPI [] GI: Denies abdominal pain, nausea, vomiting, bloody stools or diarrhea [] : Denies dysuria or hematuria [] Musculoskeletal: Denies back pain or joint pain [] Integument: Denies rash or skin lesions [] Neurologic: Denies headache, focal weakness or sensory changes [] Endocrine: Denies polyuria or polydipsia [] All other systems were reviewed and found to be within normal limits, except as documented in this note. Current Medications Current Medications Current Medications Medications (Trade) Dose Ordered Sig/Rafaela Start Time Stop Time Status Last Admin Dose Admin Clindamycin Phosphate 50 ml @ 100 mls/hr 1X ONCE 07/19/20 02:00 07/19/20 02:29 DC 07/19/20 02:03 100 MLS/HR Info (CONTRAST GIVEN -- Rx MONITORING) 1 each PRN DAILY PRN 07/19/20 02:30 07/21/20 02:29 Iohexol (Omnipaque 300 Mg/ml) 75 ml 1X ONCE 07/19/20 02:30 07/19/20 02:36 DC 07/19/20 02:46 75 ML Piperacillin Sod/ Tazobactam Sod 3.375 gm/Sodium Chloride 50 ml @ 100 mls/hr 1X ONCE 07/19/20 02:00 07/19/20 02:29 DC 07/19/20 02:04 100 MLS/HR Sodium Chloride 1,000 ml @ 1,000 mls/hr Q1H 07/19/20 01:45 07/19/20 02:44 DC 07/19/20 02:03 1,000 MLS/HR Allergies Allergies Allergies Coded Allergies Type Severity Reaction Last Updated Verified promethazine Allergy Severe serotonin syndrom 07/09/20 Yes sulfamethoxazole Allergy Intermediate n/v 07/09/20 Yes trimethoprim Allergy Intermediate n/v 07/09/20 Yes adhesive tape Allergy Mild rash 07/09/20 Yes tramadol Allergy Mild tremors 07/09/20 Yes Physical Exam Physical Exam Constitutional: Well developed, well nourished, no acute distress, non-toxic appearance. [] HENT: Normocephalic, atraumatic, bilateral external ears normal, oropharynx moist, no oral exudates, nose normal. [] Eyes: PERRLA, EOMI, conjunctiva normal, no discharge. [] Neck: Normal range of motion, no tenderness, supple, no stridor. [] Cardiovascular:Heart rate regular rhythm, no murmur [] Lungs & Thorax: Bilateral breath sounds clear to auscultation [] Abdomen: Bowel sounds normal, soft, no tenderness, no masses, no pulsatile masses. [] : Severe scrotal swelling bilaterally with prominent erythema over the left scrotum with a small lesion draining sero purulent fluid Skin: Warm, dry, no erythema, no rash. [] Back: No tenderness, no CVA tenderness. [] Extremities: No tenderness, no cyanosis, no clubbing, ROM intact, no edema. [] Neurologic: Alert and oriented X 3, normal motor function, normal sensory function, no focal deficits noted. [] Psychologic: Affect normal, judgement normal, mood normal. [] Current Patient Data Vital Signs Vital Signs Date Time Temp Pulse Resp B/P (MAP) Pulse Ox O2 Delivery O2 Flow Rate FiO2 07/19/20 03:21 65 151/68 (95) 98 Room Air 07/19/20 01:15 99.3 16 99.3 Lab Values Laboratory Tests Test 07/19/20 01:27 07/19/20 01:35 White Blood Count 8.3 x10^3/uL (4.0-11.0) Red Blood Count 3.19 x10^6/uL (4.30-5.70) L Hemoglobin 10.3 g/dL (13.0-17.5) L Hematocrit 30.9 % (39.0-53.0) L Mean Corpuscular Volume 97 fL (79-100) Mean Corpuscular Hemoglobin 32 pg (25-35) Mean Corpuscular Hemoglobin Concent 33 g/dL (31-37) Red Cell Distribution Width 14.7 % (11.5-14.5) H Platelet Count 444 x10^3/uL (140-400) H Neutrophils (%) (Auto) 81 % (31-73) H Lymphocytes (%) (Auto) 12 % (24-48) L Monocytes (%) (Auto) 5 % (0-9) Eosinophils (%) (Auto) 2 % (0-3) Basophils (%) (Auto) 0 % (0-3) Neutrophils # (Auto) 6.7 x10^3/uL (1.8-7.7) Lymphocytes # (Auto) 1.0 x10^3/uL (1.0-4.8) Monocytes # (Auto) 0.4 x10^3/uL (0.0-1.1) Eosinophils # (Auto) 0.1 x10^3/uL (0.0-0.7) Basophils # (Auto) 0.0 x10^3/uL (0.0-0.2) Prothrombin Time 14.2 SEC (11.7-14.0) H Prothrombin Time INR 1.1 (0.8-1.1) Activated Partial Thromboplast Time 33 SEC (24-38) Sodium Level 137 mmol/L (136-145) Potassium Level 4.3 mmol/L (3.5-5.1) Chloride Level 101 mmol/L (98-107) Carbon Dioxide Level 24 mmol/L (21-32) Anion Gap 12 (6-14) Blood Urea Nitrogen 19 mg/dL (8-26) Creatinine 1.5 mg/dL (0.7-1.3) H Estimated GFR (Cockcroft-Gault) 54.8 BUN/Creatinine Ratio 13 (6-20) Glucose Level 149 mg/dL (70-99) H Lactic Acid Level 1.8 mmol/L (0.4-2.0) Calcium Level 10.8 mg/dL (8.5-10.1) H Total Bilirubin 0.4 mg/dL (0.2-1.0) Aspartate Amino Transferase (AST) 25 U/L (15-37) Alanine Aminotransferase (ALT) 18 U/L (16-63) Alkaline Phosphatase 90 U/L (46-116) Ammonia 22 mcmol/L (11-34) Total Protein 5.9 g/dL (6.4-8.2) L Albumin 2.4 g/dL (3.4-5.0) L Albumin/Globulin Ratio 0.7 (1.0-1.7) L Urine Collection Type Unknown Urine Color Yellow Urine Clarity Turbid Urine pH 6.0 (<5.0-8.0) Urine Specific [employer] 1.020 (1.000-1.030) Urine Protein 100 mg/dL (NEG-TRACE) Urine Glucose (UA) Negative mg/dL (NEG) Urine Ketones (Stick) Negative mg/dL (NEG) Urine Blood Large (NEG) Urine Nitrite Positive (NEG) Urine Bilirubin Negative (NEG) Urine Urobilinogen Dipstick 0.2 mg/dL (0.2 mg/dL) Urine Leukocyte Esterase Large (NEG) Urine RBC Occ /HPF (0-2) Urine WBC Tntc /HPF (0-4) Urine Squamous Epithelial Cells Few /LPF Urine Bacteria Many /HPF (0-FEW) Urine Mucus Mod /LPF Laboratory Tests 07/19/20 01:27 Laboratory Tests 07/19/20 01:27 EKG EKG [] Radiology/Procedures Radiology/Procedures [] Course & Med Decision Making Course & Med Decision Making Pertinent Labs and Imaging studies reviewed. 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 Will treat the patient empirically, obtain labs and lactic, blood cultures and obtain a CT of the abdomen pelvis to evaluate for any underlying gas-forming bacteria. 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 Will plan for transfer to [facility] on the care of Dr Atkinson. Marce Disclaimer Marce Disclaimer This electronic medical record was generated, in whole or in part, using a voice recognition dictation system. Departure Departure Impression: Primary Impression: Testicular abscess Disposition: 05 DC/TRF OTHER TYPE INSTITUTI Condition: GOOD Referrals: ATTILA PAREDES MD (PCP) ATTILA YI MD Jul 19, 2020 02:02
[2020-07-19] MEDS: IV NORMAL SALINE 1000ML BAG 1,000 ML IV SCH (02:03)
[2020-07-19] MEDS: CLINDAMYCIN 900MG PREMIX 50 ML IV ONE (02:03)
[2020-07-19 02:04] LABS: ALBUMIN 2.4 g/dL (3.4-5.0); ALBUMIN/GLOBULIN RATIO 0.7 (1.0-1.7); TOTAL BILIRUBIN 0.4 mg/dL (0.2-1.0); TOTAL PROTEIN 5.9 g/dL (6.4-8.2)
[2020-07-19] MEDS: PIPERACILLIN/TAZOBACTAM 3.375 GM in IV NORMAL SALINE 50ML 50 ML IV ONE (02:04)
[2020-07-19] MEDS ORDERED: CONTRAST GIVEN. MC PRN (02:30)
--- NOTE | 2020-07-19 02:45 | EKG ---
[facility] [address] [place] [address] Test Date: 2020-07-19 Test Time: 02:00:10 Pat Name: NICOLE ROSA Department: Room: Gender: M Sole Leveler: : 1940 Requested By: ATTILA YI Order Number: [id number] Reading MD: Measurements Intervals [place] Rate: 65 P: 38 MA: 174 QRS: -7 QRSD: 118 T: 21 QT: 400 QTc: 417 Interpretive Statements SINUS RHYTHM LEFTWARD AXIS INCOMPLETE RIGHT BUNDLE BRANCH BLOCK OTHERWISE NORMAL ECG RI6.02 No previous ECG available for comparison
[2020-07-19] MEDS: IOHEXOL 300 MG/ML 100ML VIAL. IV ONE (02:46)
--- NOTE | 2020-07-19 03:10 | RAD ---
CT ABDOMEN+PELVIS W History:PELVIC PAIN AND POSSIBLE GANGRENE, Comparison: None. Technique: After administration of intravenous contrast, helical CT of the abdomen and pelvis was per formed from the lung bases through the ischial tuberosities. Coronal and sagittal reconstructions wer e obtained. 60 mL of Omnipaque 300 were used. One or more of the following dose reduction techniques were utilized: Automated exposure control (AEC), Adjustment of mA and/or kV according to patient size , Use of iterative reconstruction technique such as ASiR, CT scan done according to ALARA and image g ently/image wisely Abdomen Findings: The visualized lung bases are clear. Cardiomegaly. Coronary artery atherosclerotic disease. The liver, gallbladder, pancreas, spleen, and bilateral adrenal glands are normal. Symmetric renal enhancement. There is no focal renal mass. There is no hydronephrosis. The visualized loops of small bowel are normal. Mild colonic diverticulosis. There is no evidence of bowel obstruction. Appendix is normal. There is no free fluid. Region of coarse calcification in the central mesentery. The abdominal aorta is normal in caliber. Mild aortoiliac atherosclerotic disease. Pelvis Findings: Urinary bladder is decompressed by Mcginnis catheter. No pelvic free fluid. There is no pelvic or inguin al adenopathy. Degenerative changes of the spine. Bilateral hydroceles. Scrotal skin thickening and edema, with a pe ripherally enhancing collection posteriorly measuring 3.5 x 2.6 x 3.4 cm. Several foci of gas within this collection and in adjacent soft tissues appear IMPRESSION: 1. Scrotal skin thickening and edema with a 3.5 cm abscess posteriorly, and several foci of soft tiss ue gas consistent with an infectious process and possibly representing gangrene. 2. Region of coarse calcification in the central mesentery without architectural distortion or associ ated mass. While this could represent calcified lymph nodes or vascular calcifications, would recomme nd comparison with prior outside imaging if available or follow-up CT abdomen pelvis in 3 months time . Electronically signed by: Montez Marks MD (07/19/2020 3:08 AM) [facility]
[2020-07-19 04:21] VITALS: BP 135/62
== END 2020-07-19 04:50 | disposition short-term general hospital (02) ==
LOC: ER 01:12
DX: N45.4 Abscess of epididymis or testis (principal); I25.10 Atherosclerotic heart disease of native coronary artery without angina pectoris; I25.2 Old myocardial infarction; Z95.5 Presence of coronary angioplasty implant and graft; G20 Parkinson's disease; G30.9 Alzheimer's disease, unspecified; F02.80 Dementia in other diseases classified elsewhere, unspecified severity, without behavioral disturbance, psychotic disturbance, mood disturbance, and anxiety; E11.22 Type 2 diabetes mellitus with diabetic chronic kidney disease; I12.9 Hypertensive chronic kidney disease with stage 1 through stage 4 chronic kidney disease, or unspecified chronic kidney disease; N18.9 Chronic kidney disease, unspecified; Z87.891 Personal history of nicotine dependence; Z88.1 Allergy status to other antibiotic agents; Z88.2 Allergy status to sulfonamides; Z88.6 Allergy status to analgesic agent; Z88.8 Allergy status to other drugs, medicaments and biological substances
CPT/HCPCS: 36415; 74177; 80053; 81001; 82140; 83605; 85025; 85610; 85730; 87040; 87077; 87186; 87205; 93005; 96365; 96366; 96368; 99285; J2543; J3490; J7030; Q9967